=== PATIENT | female | born 1970 | race Caucasian/White ===

== ENCOUNTER → 2019-07-12 | Day surgery (SDC) | payer OTHER ==
--- NOTE | 2019-07-13 17:31 | PATH ---
Cytology Non-Gynecological Report Patient Name: BARB PRASAD Med. Rec. #: [id number] /Age/Gender: 1970 (Age: 48) / F Account: [id number] Location: RADIOLOGY [facility] Taken: 07/12/2019 Received: 07/12/2019 Reported: 07/13/2019 Physicians: Corazon Ortiz M.D. Specimen(s) Received BREAST, LEFT, 9-10:00, FINE NEEDLE ASPIRATION Clinical History Left breast 9-10:00, complicated cyst aspiration Final Diagnosis BREAST, LEFT, 9-10:00, FINE NEEDLE ASPIRATION: SATISFACTORY FOR EVALUATION. NO MALIGNANT CELLS IDENTIFIED. CYSTIC BREAST LESION WITH RARE MACROPHAGES. PROTEINACEOUS DEBRIS AND RARE MACROPHAGES CONSISTENT WITH CYST CONTENTS. NO DUCTAL CELLS IDENTIFIED. Electronically Signed Brigid Shaw M.D. Gross Description Approximately 25 cc of opaque fluid received fixed in 50% alcohol. One cytofunnel prepared and Pap stained. One cellblock prepared.
--- NOTE | 2019-07-14 13:56 | PATH ---
Surgical Pathology Report Patient Name: BARB PRASAD [facility]. Rec. #: [id number] /Age/Gender: 1970 (Age: 48) / F Account: [id number] Location: RAD[facility]OLOGY [facility] Taken: 07/12/2019 Received: 07/12/2019 Reported: 07/14/2019 Physicians: Benjamin Juarez M.D. Specimen(s) Received A: RIGHT AXILLA LYMPH NODE B: RIGHT BREAST 12-:00 CORE BIOPSY C: LEFT BREAST 11:00 CORE BIOPSY Clinical History Palpable mass Mammographic findings, ultrasound findings: Highly suspicious/malignant Final Diagnosis A. RIGHT AXILLA LYMPH NODE, ULTRASOUND GUIDED CORE BIOPSY: METASTATIC CARCINOMA IN A BACKGROUND OF LYMPHOID TISSUE. CARCINOMA MEASURES AT LEAST 1.8MM IN LENGTH ON THIS SLIDE. B. RIGHT BREAST 12- 1:00, 4.3 CM IRREGULAR MASS, CORE BIOPSY: INVASIVE DUCTAL CARCINOMA, MODERATELY DIFFERENTIATED, MEASURING 1.2 CM IN LENGTH MEASURED ON THIS SLIDE. Results of Estrogen Receptor (ER) and Progesterone Receptor (NH) studies performed on block "B1" at [facility] are as follows: ER (clone [id number] mouse monoclonal antibody by [employer]): 100% nuclear staining with strong intensity (Positive). NH (clone16 mouse monoclonal antibody by [employer]): ~90% nuclear staining with strong and moderate intensity (Positive). Results of Her2 (IHC) & Ki-67 studies on block "B1" performed at [place], [place] ([id number]) interpreted at [facility] are as follows: Her2 IHC (EP3 from [employer], formerly known as [id number], using Sorensen Polymer Refine detection kit): Negative (1+) Ki-67: ~20% (intermediate proliferative index) Comment: Immunohistochemical stain E-Cadherin performed and interpreted at [facility] shows diffuse membranous staining in the carcinoma, supports a ductal phenotype. C. LEFT BREAST 11:00, 4.0 CM MASS, CORE BIOPSY: INVASIVE DUCTAL CARCINOMA, WELL DIFFERENTIATED, MEASURING 1.2 CM IN LENGTH MEASURED ON THIS SLIDE. DUCTAL CARCINOMA IN SITU (DCIS) PRESENT, INTERMEDIATE NUCLEAR GRADE, CRIBRIFORM TYPE. Results of Estrogen Receptor (ER) and Progesterone Receptor (NH) studies performed on block "C1" at [facility] are as follows: ER (clone 6F11 mouse monoclonal antibody by Le[employer]): 100% nuclear staining with strong intensity (Positive). NH (clone16 mouse monoclonal antibody by [employer]): ~75% nuclear staining with strong and moderate intensity (Positive). Results of Her2 (IHC) & Ki-67 studies on block "C1" performed at [place], [place] ([id number]) interpreted at [facility] are as follows: Her2 IHC (EP3 from [employer], formerly known as [id number], using Sorensen Polymer Refine detection kit): Equivocal (2+) Ki-67: <3% (low proliferative index) HER2 FISH result is pending. An addendum report to follow. Comment: Immunohistochemical stains performed and interpreted at [facility] show the following results: p63 show loss of the myoepithelial cell layer in the areas of invasive carcinoma. Positive and negative controls (internal if applicable) show appropriate results. Formalin fixation and cold ischemic times are within current ASCO/CAP recommendations for ER, NH and Her2 testing. This case was discussed with Dr. Jacob on 07/14/2019. Electronically Signed Boom Huitron M.D. Addendum Reported: 07/19/2019 Addendum Diagnosis Results of Her2 FISH studies performed on block " C1 " at [place], [place] ([id number] ) are as follows: Her2: 2.0 CEP17: 2.0 Ratio: 1.0 Interpretation: Negative See Emerge report for additional details. Boom Huitron M.D. Gross Description A. Received in formalin labeled "right axilla," is a 0.7 x 0.4 x 0.2 cm aggregate of tijerina-yellow, irregular to cylindrical portions of fibroadipose tissue. The formalin is filtered and the specimen is entirely submitted in one cassette. B. Received in formalin labeled "right 12:00-1:00," are 2 tijerina-yellow, cylindrical portions of fibroadipose tissue measuring 1.5 and 1.8 cm in length and averaging 0.1 cm in diameter. The specimens are submitted in toto in one cassette. C. Received in formalin labeled "left 11:00," are 2 tijerina-yellow, cylindrical portions of fibroadipose tissue averaging 1.4 cm in length and 0.1 cm in diameter. The specimens are submitted in toto in one cassette. Time to formalin fixation: Less than one minute Total formalin fixation time: Approximately 7 hours. 07/12/2019 [facility]07/12/2019
== END | disposition home or self-care (01) ==
LOC: JRADUS-SUR 10:20
PROVIDERS: ATTEND Student in an Organized Health Care Education/Training Program
PROC: 0H9V3ZX Drainage of Bilateral Breast, Percutaneous Approach, Diagnostic (ICD-10-PCS; principal; 2019-07-12)
PROC: 0H9U3ZX Drainage of Left Breast, Percutaneous Approach, Diagnostic (ICD-10-PCS; 2019-07-12)
DX: C50.912 Malignant neoplasm of unspecified site of left female breast (principal); C50.911 Malignant neoplasm of unspecified site of right female breast; C77.3 Secondary and unspecified malignant neoplasm of axilla and upper limb lymph nodes; N60.02 Solitary cyst of left breast; Z17.0 Estrogen receptor positive status [ER+]
CPT/HCPCS: 19083; 19084; 76942-TC; 87899; 88173; 88305-TC; 88342-TC; A4648

== ENCOUNTER 2019-11-12 07:16 | Day surgery (SDC) | payer OTHER ==
[2019-11-12] MEDS ORDERED: GOSERELIN ACETATE 3.6 MG IMPLANT SYRINGE SQ ONE (10:00)
[2019-11-12] MEDS ORDERED: LIDOCAINE HCL 1%, 10 MG/ML (20ML VIAL) ID ONE (10:00)
[2019-11-12 11:09] LABS: BASO % 0.3 % (0-2.0); EOS % 0.7 % (0-4.5); HEMATOCRIT 43.3 % (32.4-45.2); HEMOGLOBIN 14.2 GM/dL (10.7-15.3); LYMPH % 27.9 % (8-40); MCH 29.7 pg (25.7-33.7); MCHC 32.8 g/dl (32.0-36.0); MEAN CELL VOLUME 90.4 fl (80-96); MEAN PLT VOLUME 8.8 fl (7.5-11.1); MONO % 10.7 % (3.8-10.2); NEUT % 60.4 % (42.8-82.8); PLATELET COUNT 261 K/MM3 (134-434); RBC 4.79 M/mm3 (3.60-5.2); RDW 13.9 % (11.6-15.6); WHITE BLOOD COUNT 5.6 K/mm3 (4.0-10.0)
[2019-11-12 11:52] LABS: ALBUMIN 3.6 g/dl (3.4-5.0); BILIRUBIN,TOTAL 0.5 mg/dL (0.2-1); BLOOD UREA NITROGEN 16.7 mg/dL (7-18); CALCIUM 9.9 mg/dL (8.5-10.1); CREATININE 0.4 mg/dL (0.55-1.3); POTASSIUM 3.9 mmol/L (3.5-5.1); TOT PROT 7.1 g/dl (6.4-8.2)
[2019-11-12 15:26] VITALS: BP 140/85; PULSE 75; TEMP 98.6
== END 2019-11-12 11:31 | disposition home or self-care (01) ==
LOC: JONCCHEMO 07:16
PROVIDERS: ATTEND Internal Medicine Hematology & Oncology
DX: Z51.11 Encounter for antineoplastic chemotherapy (principal); C50.912 Malignant neoplasm of unspecified site of left female breast; C50.911 Malignant neoplasm of unspecified site of right female breast
CPT/HCPCS: 36415; 80053; 85025; 96402; J9202

== ENCOUNTER → 2019-11-25 | Day surgery (SDC) | payer OTHER ==
--- NOTE | 2019-11-26 18:10 | PATH ---
Cytology Non-Gynecological Report Patient Name: BARB PRASAD [facility]. Rec. #: [id number] /Age/Gender: 1970 (Age: 48) / F Account: [id number] Location: RADIOLOGY [facility] Taken: 11/25/2019 Received: 11/25/2019 Reported: 11/26/2019 Physicians: Benjamin Valadez M.D. Specimen(s) Received LEFT THYROID FNA Clinical History Left lobe, 4.48 x 2.48 x 3.1 cm Final Diagnosis THYROID, LEFT LOBE, FINE NEEDLE ASPIRATION: SATISFACTORY FOR EVALUATION. BETHESDA CLASS II: BENIGN. CYTOLOGIC FINDINGS ARE CONSISTENT WITH A BENIGN FOLLICULAR NODULE WITH CYSTIC CHANGE. FEW FOLLICULAR CELLS IN A BACKGROUND OF THIN COLLOID AND FEW MACROPHAGES. Electronically Signed Brigid Shaw M.D. Gross Description Received are eight direct smears, four of which are air-dried and Diff-Quik stained, and four of which are alcohol fixed and Pap stained. Also received is 20 ml of bloody formalin from which one cellblock is prepared.
== END | disposition home or self-care (01) ==
LOC: JRADIR 05:08
PROVIDERS: ATTEND Internal Medicine Hematology & Oncology
PROC: 0G9G3ZX Drainage of Left Thyroid Gland Lobe, Percutaneous Approach, Diagnostic (ICD-10-PCS; principal; 2019-11-25)
DX: E04.1 Nontoxic single thyroid nodule (principal)
CPT/HCPCS: 76942; 88173; 88305-TC

== ENCOUNTER 2019-12-10 07:12 | Day surgery (SDC) | payer OTHER ==
[2019-12-10] MEDS ORDERED: LIDOCAINE HCL 1%, 10 MG/ML (20ML VIAL) ID ONE (10:00)
[2019-12-10] MEDS ORDERED: GOSERELIN ACETATE 3.6 MG IMPLANT SYRINGE SQ ONE (10:00)
[2019-12-10 10:17] LABS: EOS % 0.8 % (0-4.5); HEMATOCRIT 43.1 % (32.4-45.2); HEMOGLOBIN 14.1 GM/dL (10.7-15.3); LYMPH % 31.5 % (8-40); MCH 29.8 pg (25.7-33.7); MCHC 32.8 g/dl (32.0-36.0); MEAN CELL VOLUME 90.9 fl (80-96); MEAN PLT VOLUME 8.8 fl (7.5-11.1); MONO % 8.3 % (3.8-10.2); NEUT % 58.4 % (42.8-82.8); PLATELET COUNT 269 K/MM3 (134-434); RBC 4.75 M/mm3 (3.60-5.2); RDW 13.6 % (11.6-15.6); WHITE BLOOD COUNT 4.6 K/mm3 (4.0-10.0)
[2019-12-10 10:39] LABS: ALBUMIN 3.7 g/dl (3.4-5.0); BILIRUBIN,TOTAL 0.4 mg/dL (0.2-1); CREATININE 0.5 mg/dL (0.55-1.3); POTASSIUM 3.7 mmol/L (3.5-5.1)
[2019-12-10 13:55] VITALS: BP 135/79; PULSE 88; TEMP 98.4
[2019-12-11 08:07] LABS: FOLLICLE STIMULATING HORMONE 4.9 mIU/mL (.); LUTEINIZING HORMONE < 0.3 mIU/mL (.)
== END 2019-12-10 11:05 | disposition home or self-care (01) ==
LOC: JONCCHEMO 07:12
PROVIDERS: ATTEND Internal Medicine Hematology & Oncology
DX: Z51.11 Encounter for antineoplastic chemotherapy (principal); C50.911 Malignant neoplasm of unspecified site of right female breast
CPT/HCPCS: 36415; 80053; 82670; 83001; 83002; 85025; 96402; J9202

== ENCOUNTER 2020-01-07 07:29 | Day surgery (SDC) | payer OTHER ==
[2020-01-07] MEDS ORDERED: GOSERELIN ACETATE 3.6 MG IMPLANT SYRINGE SQ ONE (10:00)
[2020-01-07 12:12] LABS: BASO % 0.4 % (0-2.0); EOS % 0.4 % (0-4.5); HEMATOCRIT 45.8 % (32.4-45.2); HEMOGLOBIN 14.9 GM/dL (10.7-15.3); LYMPH % 23.7 % (8-40); MCH 29.5 pg (25.7-33.7); MCHC 32.5 g/dl (32.0-36.0); MEAN CELL VOLUME 90.7 fl (80-96); MEAN PLT VOLUME 8.9 fl (7.5-11.1); MONO % 7.1 % (3.8-10.2); NEUT % 68.4 % (42.8-82.8); PLATELET COUNT 243 K/MM3 (134-434); RBC 5.04 M/mm3 (3.60-5.2); RDW 12.9 % (11.6-15.6); WHITE BLOOD COUNT 6.1 K/mm3 (4.0-10.0)
[2020-01-07 12:44] LABS: ALBUMIN 3.7 g/dl (3.4-5.0); BILIRUBIN,TOTAL 0.5 mg/dL (0.2-1); CALCIUM 10.6 mg/dL (8.5-10.1); CREATININE 0.5 mg/dL (0.55-1.3); POTASSIUM 3.9 mmol/L (3.5-5.1); TOT PROT 7.2 g/dl (6.4-8.2)
[2020-01-07 15:32] VITALS: BP 151/88; PULSE 105; TEMP 98.2
== END 2020-01-07 11:45 | disposition home or self-care (01) ==
LOC: JONCCHEMO 07:29
PROVIDERS: ATTEND Internal Medicine Hematology & Oncology
DX: Z51.11 Encounter for antineoplastic chemotherapy (principal); C50.911 Malignant neoplasm of unspecified site of right female breast
CPT/HCPCS: 36415; 80053; 82670; 85025; 85651; 86038; 86140; 86300; 86431; 96402; J9202

== ENCOUNTER 2020-02-04 06:45 | Day surgery (SDC) | payer OTHER ==
--- OUTSIDE RECORDS SUMMARY | 2020-02-04 06:48 | XMS ---
:1970 Author Organization [facility] Support Name Relationship Address Phone [facility] [place] [address] BARB MOORE DAUGHTER [address] [place] [address] Re-disclosure Warning The records that you are about to access may contain information from federally- assisted alcohol or drug abuse programs. If such information is present, then the following federally mandated warning applies: This information has been disclosed to you from records protected by federal confidentiality rules (42 CFR part 2). The federal rules prohibit you from making any further disclosure of this information unless further disclosure is expressly permitted by the written consent of the person to whom it pertains or as otherwise permitted by 42 CFR part 2. A general authorization for the release of medical or other information is NOT sufficient for this purpose. The Federal rules restrict any use of the information to criminally investigate or prosecute any alcohol or drug abuse patient.The records that you are about to access may contain highly sensitive health information, the redisclosure of which is protected by Article 27-F of the [facility] Public Health law. If you continue you may haveaccess to information: Regarding HIV / AIDS; Provided by facilities licensed or operated by the [facility] Office of Mental Health; or Provided by the [facility] Office for People With Developmental Disabilities. If such information is present, then the following [facility] mandated warning applies: This information has been disclosed to you from confidential records which are protected by state law. State law prohibits you from making any further disclosure of this information without the specific written consent of the person to whom it pertains, or as otherwise permitted by law. Any unauthorized further disclosure in violation of state law may result in a fine or senior care sentence or both. A general authorization for the release of medical or other information is NOT sufficient authorization for further disclosure. Insurance Providers Payer name Policy type Policy ID Covered Covered constitution party's Policy P trevor / Coverage constitution party ID relationship to [place] Inf ormation type [place] [employer] [id number] SP [id number] ESSENTIAL PLAN 1 2 [employer] [id number] SP [id number] ESSENTIAL PLAN 1 2 AFFINITY [id number] SP [id number] AFFINITY [id number] SP [id number] AFFINITY [id number] SP [id number] ESSENTIAL PLAN 1 2 Results ID Date Data Source [id number] 10/17/2019 12:00:00 PM EDT [facility] Name Value Range Interpretation Description Data Sup porting Code Source(s) Document(s ) SARS [facility] CORONAVIRUS 2 RNA This lab was ordered by [facility] and reported by [facility]. ID Date Data Source [id number] 09/10/2019 12:00:00 AM EDT [facility] Name Value Range Interpretation Code Description Data Roxy rce(s) Supporting Document(s ) [facility] RNA XXX GENE+probe- Imp This lab was ordered by MIREYA MALDONADO 2 and reported by [employer] Procedure
[2020-02-04] MEDS ORDERED: GOSERELIN ACETATE 3.6 MG IMPLANT SYRINGE SQ ONE (10:00)
[2020-02-04] MEDS ORDERED: LIDOCAINE HCL 1%, 10 MG/ML (20ML VIAL) ID ONE (10:00)
[2020-02-04 11:33] LABS: BASO % 0.6 % (0-2.0); EOS % 1.1 % (0-4.5); HEMATOCRIT 42.3 % (32.4-45.2); HEMOGLOBIN 14.3 GM/dL (10.7-15.3); MCH 30.6 pg (25.7-33.7); MCHC 33.8 g/dl (32.0-36.0); MEAN CELL VOLUME 90.5 fl (80-96); MEAN PLT VOLUME 8.5 fl (7.5-11.1); MONO % 9.6 % (3.8-10.2); NEUT % 55.7 % (42.8-82.8); PLATELET COUNT 249 K/MM3 (134-434); RBC 4.68 M/mm3 (3.60-5.2); RDW 12.7 % (11.6-15.6); WHITE BLOOD COUNT 4.9 K/mm3 (4.0-10.0)
[2020-02-04 11:53] LABS: ALBUMIN 3.6 g/dl (3.4-5.0); BILIRUBIN,TOTAL 0.5 mg/dL (0.2-1); BLOOD UREA NITROGEN 16.1 mg/dL (7-18); CALCIUM 10.4 mg/dL (8.5-10.1); CREATININE 0.4 mg/dL (0.55-1.3)
[2020-02-04 16:25] VITALS: BP 126/87; PULSE 97; TEMP 98.5
== END 2020-02-04 12:10 | disposition home or self-care (01) ==
LOC: JONCCHEMO 06:45
PROVIDERS: ATTEND Internal Medicine Hematology & Oncology
DX: Z51.11 Encounter for antineoplastic chemotherapy (principal); C50.919 Malignant neoplasm of unspecified site of unspecified female breast
CPT/HCPCS: 36415; 80053; 82670; 85025; 96402; J9202

== ENCOUNTER 2020-04-03 07:12 | Day surgery (SDC) | payer OTHER ==
[2020-04-03] MEDS ORDERED: LIDOCAINE HCL 1%, 10 MG/ML (20ML VIAL) ID ONE (10:00)
[2020-04-03] MEDS ORDERED: GOSERELIN ACETATE 3.6 MG IMPLANT SYRINGE SQ ONE (10:00)
[2020-04-03 10:41] LABS: BASO % 0.7 % (0-2.0); EOS % 0.9 % (0-4.5); HEMATOCRIT 44.3 % (32.4-45.2); HEMOGLOBIN 14.5 GM/dL (10.7-15.3); LYMPH % 29.7 % (8-40); MCH 29.5 pg (25.7-33.7); MCHC 32.7 g/dl (32.0-36.0); MEAN CELL VOLUME 90.2 fl (80-96); MEAN PLT VOLUME 8.7 fl (7.5-11.1); MONO % 9.4 % (3.8-10.2); NEUT % 59.3 % (42.8-82.8); PLATELET COUNT 252 K/MM3 (134-434); RBC 4.92 M/mm3 (3.60-5.2); RDW 12.4 % (11.6-15.6); WHITE BLOOD COUNT 4.3 K/mm3 (4.0-10.0)
[2020-04-03 11:03] LABS: POTASSIUM 3.8 mmol/L (3.5-5.1)
[2020-04-03 11:06] LABS: CALCIUM 10.4 mg/dL (8.5-10.1)
[2020-04-03 11:07] LABS: ALBUMIN 3.9 g/dl (3.4-5.0); BLOOD UREA NITROGEN 14.5 mg/dL (7-18)
[2020-04-03 11:10] LABS: CREATININE 0.4 mg/dL (0.55-1.3)
[2020-04-03 11:12] LABS: BILIRUBIN,TOTAL 0.7 mg/dL (0.2-1); TOT PROT 7.2 g/dl (6.4-8.2)
[2020-04-03 11:56] VITALS: BP 148/80; PULSE 96; TEMP 98.1
== END 2020-04-03 11:35 | disposition home or self-care (01) ==
LOC: JONCCHEMO 07:12
PROVIDERS: ATTEND Internal Medicine Hematology & Oncology
DX: Z51.11 Encounter for antineoplastic chemotherapy (principal); C50.911 Malignant neoplasm of unspecified site of right female breast
CPT/HCPCS: 36415; 80053; 85025; 96402; J9202

== ENCOUNTER 2020-05-04 08:11 | Day surgery (SDC) | payer OTHER ==
[2020-05-04] MEDS ORDERED: GOSERELIN ACETATE 3.6 MG IMPLANT SYRINGE SQ ONE (10:00)
[2020-05-04] MEDS ORDERED: LIDOCAINE HCL 1%, 10 MG/ML (20ML VIAL) ID ONE (10:00)
[2020-05-04 10:48] LABS: BASO % 1.1 % (0-2.0); EOS % 0.7 % (0-4.5); HEMATOCRIT 43.7 % (32.4-45.2); HEMOGLOBIN 14.5 GM/dL (10.7-15.3); LYMPH % 28.7 % (8-40); MCH 30.3 pg (25.7-33.7); MCHC 33.2 g/dl (32.0-36.0); MEAN CELL VOLUME 91.4 fl (80-96); MEAN PLT VOLUME 8.5 fl (7.5-11.1); MONO % 7.5 % (3.8-10.2); PLATELET COUNT 280 K/MM3 (134-434); RBC 4.78 M/mm3 (3.60-5.2); RDW 13.2 % (11.6-15.6); WHITE BLOOD COUNT 5.6 K/mm3 (4.0-10.0)
[2020-05-04 11:10] LABS: ALBUMIN 3.7 g/dl (3.4-5.0); CALCIUM 10.1 mg/dL (8.5-10.1)
[2020-05-04 11:11] LABS: BLOOD UREA NITROGEN 16.1 mg/dL (7-18)
[2020-05-04 11:14] LABS: CREATININE 0.4 mg/dL (0.55-1.3)
[2020-05-04 11:15] LABS: BILIRUBIN,TOTAL 0.8 mg/dL (0.2-1)
[2020-05-04 13:11] VITALS: BP 133/70; PULSE 84; TEMP 98.5
== END 2020-05-04 12:10 | disposition home or self-care (01) ==
LOC: JONCCHEMO 08:11
PROVIDERS: ATTEND Internal Medicine Hematology & Oncology
DX: Z51.11 Encounter for antineoplastic chemotherapy (principal); C50.911 Malignant neoplasm of unspecified site of right female breast
CPT/HCPCS: 36415; 80053; 82670; 85025; 96402; J9202

== ENCOUNTER 2020-06-01 06:51 | Day surgery (SDC) | payer OTHER ==
[2020-06-01] MEDS ORDERED: LIDOCAINE HCL 1%, 10 MG/ML (20ML VIAL) ID ONE (10:00)
[2020-06-01] MEDS ORDERED: GOSERELIN ACETATE 3.6 MG IMPLANT SYRINGE SQ ONE (10:00)
[2020-06-01 10:44] LABS: BASO % 0.9 % (0-2.0); EOS % 0.6 % (0-4.5); HEMATOCRIT 40.8 % (32.4-45.2); HEMOGLOBIN 13.8 GM/dL (10.7-15.3); LYMPH % 32.9 % (8-40); MCH 30.6 pg (25.7-33.7); MCHC 33.8 g/dl (32.0-36.0); MEAN CELL VOLUME 90.6 fl (80-96); MEAN PLT VOLUME 8.8 fl (7.5-11.1); MONO % 7.9 % (3.8-10.2); NEUT % 57.7 % (42.8-82.8); PLATELET COUNT 281 K/MM3 (134-434); RDW 12.5 % (11.6-15.6); WHITE BLOOD COUNT 4.9 K/mm3 (4.0-10.0)
[2020-06-01 11:06] LABS: POTASSIUM 3.6 mmol/L (3.5-5.1)
[2020-06-01 11:07] LABS: BLOOD UREA NITROGEN 16.7 mg/dL (7-18)
[2020-06-01 11:08] LABS: ALBUMIN 3.6 g/dl (3.4-5.0); CALCIUM 10.1 mg/dL (8.5-10.1)
[2020-06-01 11:12] LABS: CREATININE 0.4 mg/dL (0.55-1.3)
[2020-06-01 11:13] LABS: TOT PROT 6.8 g/dl (6.4-8.2)
[2020-06-01 11:16] LABS: BILIRUBIN,TOTAL 0.6 mg/dL (0.2-1)
[2020-06-01 14:43] VITALS: BP 129/72; PULSE 84; TEMP 98.2
== END 2020-06-01 12:15 | disposition home or self-care (01) ==
LOC: JONCCHEMO 06:51
PROVIDERS: ATTEND Internal Medicine Hematology & Oncology
DX: Z51.11 Encounter for antineoplastic chemotherapy (principal); C50.911 Malignant neoplasm of unspecified site of right female breast
CPT/HCPCS: 36415; 80053; 82670; 85025; 96402; J9202

== ENCOUNTER 2020-06-29 07:38 | Day surgery (SDC) | payer OTHER ==
[2020-06-29] MEDS ORDERED: LIDOCAINE HCL 1%, 10 MG/ML (20ML VIAL) ID ONE (10:00)
[2020-06-29] MEDS ORDERED: GOSERELIN ACETATE 3.6 MG IMPLANT SYRINGE SQ ONE (10:00)
[2020-06-29 11:35] LABS: BASO % 0.4 % (0-2.0); EOS % 1.1 % (0-4.5); HEMATOCRIT 41.8 % (32.4-45.2); HEMOGLOBIN 14.2 GM/dL (10.7-15.3); LYMPH % 32.4 % (8-40); MCH 30.7 pg (25.7-33.7); MCHC 34.1 g/dl (32.0-36.0); MEAN CELL VOLUME 90.2 fl (80-96); MEAN PLT VOLUME 9.3 fl (7.5-11.1); MONO % 8.5 % (3.8-10.2); NEUT % 57.6 % (42.8-82.8); PLATELET COUNT 269 K/MM3 (134-434); RBC 4.64 M/mm3 (3.60-5.2); RDW 12.9 % (11.6-15.6); WHITE BLOOD COUNT 5.1 K/mm3 (4.0-10.0)
[2020-06-29 11:45] LABS: POTASSIUM 3.8 mmol/L (3.5-5.1)
[2020-06-29 11:47] LABS: CALCIUM 9.9 mg/dL (8.5-10.1)
[2020-06-29 11:48] LABS: ALBUMIN 3.6 g/dl (3.4-5.0); BLOOD UREA NITROGEN 14.3 mg/dL (7-18)
[2020-06-29 11:51] LABS: CREATININE 0.4 mg/dL (0.55-1.3)
[2020-06-29 11:52] LABS: BILIRUBIN,TOTAL 0.6 mg/dL (0.2-1); TOT PROT 7.1 g/dl (6.4-8.2)
[2020-06-29 16:53] VITALS: BP 155/96; PULSE 101; TEMP 97.8
== END 2020-06-29 11:45 | disposition home or self-care (01) ==
LOC: JONCCHEMO 07:38
PROVIDERS: ATTEND Internal Medicine Hematology & Oncology
DX: Z51.11 Encounter for antineoplastic chemotherapy (principal); C50.911 Malignant neoplasm of unspecified site of right female breast
CPT/HCPCS: 36415; 80053; 83735; 85025; 96402; J9202

== ENCOUNTER 2020-07-27 07:35 | Day surgery (SDC) | payer OTHER ==
[2020-07-27] MEDS ORDERED: GOSERELIN ACETATE 3.6 MG IMPLANT SYRINGE SQ ONE (10:00)
[2020-07-27] MEDS ORDERED: LIDOCAINE HCL 1%, 10 MG/ML (20ML VIAL) ID ONE (10:00)
[2020-07-27 11:10] LABS: BASO % 0.4 % (0-2.0); EOS % 0.6 % (0-4.5); HEMATOCRIT 40.4 % (32.4-45.2); HEMOGLOBIN 13.8 GM/dL (10.7-15.3); LYMPH % 30.5 % (8-40); MCH 30.5 pg (25.7-33.7); MCHC 34.1 g/dl (32.0-36.0); MEAN CELL VOLUME 89.4 fl (80-96); MEAN PLT VOLUME 8.7 fl (7.5-11.1); MONO % 7.1 % (3.8-10.2); NEUT % 61.4 % (42.8-82.8); PLATELET COUNT 263 K/MM3 (134-434); RBC 4.52 M/mm3 (3.60-5.2); RDW 12.5 % (11.6-15.6); WHITE BLOOD COUNT 4.7 K/mm3 (4.0-10.0)
[2020-07-27 11:12] LABS: CALCIUM 10.5 mg/dL (8.5-10.1)
[2020-07-27 11:14] LABS: ALBUMIN 3.6 g/dl (3.4-5.0); BLOOD UREA NITROGEN 13.9 mg/dL (7-18)
[2020-07-27 11:16] LABS: CREATININE 0.4 mg/dL (0.55-1.3); POTASSIUM 3.8 mmol/L (3.5-5.1)
[2020-07-27 11:17] LABS: BILIRUBIN,TOTAL 0.8 mg/dL (0.2-1); TOT PROT 6.7 g/dl (6.4-8.2)
[2020-07-27 14:25] VITALS: BP 118/64; PULSE 71; TEMP 98.2
== END 2020-07-27 12:15 | disposition home or self-care (01) ==
LOC: JONCCHEMO 07:35
PROVIDERS: ATTEND Internal Medicine Hematology & Oncology
DX: Z51.11 Encounter for antineoplastic chemotherapy (principal); C50.912 Malignant neoplasm of unspecified site of left female breast; C50.911 Malignant neoplasm of unspecified site of right female breast
CPT/HCPCS: 36415; 80053; 85025; 96402; J9202

== ENCOUNTER 2020-08-24 07:24 | Day surgery (SDC) | payer OTHER ==
[2020-08-24] MEDS ORDERED: LIDOCAINE HCL 1%, 10 MG/ML (20ML VIAL) ID ONE ×2 (10:00→10:15)
[2020-08-24] MEDS ORDERED: GOSERELIN ACETATE 3.6 MG IMPLANT SYRINGE SQ ONE ×2 (10:00→10:15)
[2020-08-24 11:18] LABS: BASO % 0.5 % (0-2.0); EOS % 0.7 % (0-4.5); HEMATOCRIT 42.1 % (32.4-45.2); HEMOGLOBIN 14.5 GM/dL (10.7-15.3); LYMPH % 34.2 % (8-40); MCH 30.6 pg (25.7-33.7); MCHC 34.4 g/dl (32.0-36.0); MEAN CELL VOLUME 88.9 fl (80-96); MEAN PLT VOLUME 8.7 fl (7.5-11.1); MONO % 7.4 % (3.8-10.2); NEUT % 57.2 % (42.8-82.8); PLATELET COUNT 295 K/MM3 (134-434); RBC 4.74 M/mm3 (3.60-5.2); RDW 12.6 % (11.6-15.6)
[2020-08-24 11:27] LABS: CALCIUM 10.3 mg/dL (8.5-10.1)
[2020-08-24 11:28] LABS: ALBUMIN 3.6 g/dl (3.4-5.0); BLOOD UREA NITROGEN 17.7 mg/dL (7-18)
[2020-08-24 11:31] LABS: CREATININE 0.4 mg/dL (0.55-1.3)
[2020-08-24 11:32] LABS: BILIRUBIN,TOTAL 0.6 mg/dL (0.2-1)
[2020-08-24 17:18] VITALS: BP 129/80; PULSE 77; TEMP 98.3
== END 2020-08-24 12:00 | disposition home or self-care (01) ==
LOC: JONCCHEMO 07:24
PROVIDERS: ATTEND Internal Medicine Hematology & Oncology
DX: Z51.11 Encounter for antineoplastic chemotherapy (principal); C50.912 Malignant neoplasm of unspecified site of left female breast; C50.911 Malignant neoplasm of unspecified site of right female breast
CPT/HCPCS: 36415; 80053; 82670; 85025; 96402; J9202

== ENCOUNTER 2020-09-20 06:42 | Day surgery (SDC) | payer OTHER ==
[2020-09-20 11:00] LABS: BASO % 0.7 % (0-2.0); EOS % 1.2 % (0-4.5); HEMATOCRIT 42.4 % (32.4-45.2); HEMOGLOBIN 14.4 GM/dL (10.7-15.3); LYMPH % 29.6 % (8-40); MCH 30.5 pg (25.7-33.7); MEAN CELL VOLUME 89.7 fl (80-96); MEAN PLT VOLUME 8.6 fl (7.5-11.1); MONO % 7.3 % (3.8-10.2); NEUT % 61.2 % (42.8-82.8); PLATELET COUNT 250 K/MM3 (134-434); RBC 4.72 M/mm3 (3.60-5.2); RDW 12.6 % (11.6-15.6); WHITE BLOOD COUNT 5.5 K/mm3 (4.0-10.0)
[2020-09-20] MEDS ORDERED: LIDOCAINE HCL 1%, 10 MG/ML (20ML VIAL) ID ONE (11:00)
[2020-09-20] MEDS ORDERED: GOSERELIN ACETATE 3.6 MG IMPLANT SYRINGE SQ ONE (11:00)
[2020-09-20 11:27] LABS: ALBUMIN 3.6 g/dl (3.4-5.0); BLOOD UREA NITROGEN 15.2 mg/dL (7-18); CALCIUM 9.7 mg/dL (8.5-10.1)
[2020-09-20 11:32] LABS: BILIRUBIN,TOTAL 0.5 mg/dL (0.2-1); TOT PROT 6.7 g/dl (6.4-8.2)
[2020-09-20 11:39] LABS: CREATININE 0.3 mg/dL (0.55-1.3)
[2020-09-20 18:21] VITALS: BP 134/80; PULSE 83; TEMP 98.3
== END 2020-09-20 11:30 | disposition home or self-care (01) ==
LOC: JONCCHEMO 06:42
PROVIDERS: ATTEND Internal Medicine Hematology & Oncology
DX: Z51.11 Encounter for antineoplastic chemotherapy (principal); C50.911 Malignant neoplasm of unspecified site of right female breast; C50.912 Malignant neoplasm of unspecified site of left female breast
CPT/HCPCS: 36415; 80053; 82670; 85025; 86300; 96402; J9202

== ENCOUNTER 2020-10-18 07:58 | Day surgery (SDC) | payer OTHER ==
[2020-10-18] MEDS ORDERED: LIDOCAINE HCL 1%, 10 MG/ML (20ML VIAL) ID ONE (10:00)
[2020-10-18] MEDS ORDERED: GOSERELIN ACETATE 3.6 MG IMPLANT SYRINGE SQ ONE (10:00)
[2020-10-18 10:08] LABS: BASO % 0.5 % (0-2.0); EOS % 1.4 % (0-4.5); HEMOGLOBIN 14.4 GM/dL (10.7-15.3); LYMPH % 34.5 % (8-40); MCH 29.6 pg (25.7-33.7); MCHC 32.8 g/dl (32.0-36.0); MEAN CELL VOLUME 90.1 fl (80-96); MEAN PLT VOLUME 7.8 fl (7.5-11.1); MONO % 6.2 % (3.8-10.2); NEUT % 57.4 % (42.8-82.8); PLATELET COUNT 259 10^3/uL (134-434); RBC 4.89 M/mm3 (3.60-5.2); RDW 13.3 % (11.6-15.6); WHITE BLOOD COUNT 5.3 K/mm3 (4.0-10.0)
[2020-10-18 10:28] LABS: CALCIUM 9.7 mg/dL (8.5-10.1)
[2020-10-18 10:29] LABS: ALBUMIN 3.7 g/dl (3.4-5.0); BLOOD UREA NITROGEN 15.9 mg/dL (7-18)
[2020-10-18 10:32] LABS: CREATININE 0.3 mg/dL (0.55-1.3)
[2020-10-18 10:33] LABS: BILIRUBIN,TOTAL 0.6 mg/dL (0.2-1)
[2020-10-18 16:29] VITALS: BP 139/88; PULSE 77; TEMP 98.5
== END 2020-10-18 11:10 | disposition home or self-care (01) ==
LOC: JONCCHEMO 07:58
PROVIDERS: ATTEND Internal Medicine Hematology & Oncology
DX: Z51.11 Encounter for antineoplastic chemotherapy (principal); C50.911 Malignant neoplasm of unspecified site of right female breast; C50.912 Malignant neoplasm of unspecified site of left female breast
CPT/HCPCS: 36415; 80053; 85025; 96402; J9202

== ENCOUNTER 2020-11-15 05:12 | Day surgery (SDC) | payer OTHER ==
[2020-11-15] MEDS ORDERED: GOSERELIN ACETATE 3.6 MG IMPLANT SYRINGE SQ ONE (10:00)
[2020-11-15] MEDS ORDERED: LIDOCAINE HCL 1%, 10 MG/ML (20ML VIAL) ID ONE (10:00)
[2020-11-15 10:26] LABS: BASO % 0.7 % (0-2.0); EOS % 0.9 % (0-4.5); HEMATOCRIT 44.7 % (32.4-45.2); HEMOGLOBIN 14.9 GM/dL (10.7-15.3); LYMPH % 31.9 % (8-40); MCH 30.4 pg (25.7-33.7); MCHC 33.4 g/dl (32.0-36.0); MEAN CELL VOLUME 91.1 fl (80-96); MEAN PLT VOLUME 8.2 fl (7.5-11.1); MONO % 4.7 % (3.8-10.2); NEUT % 61.8 % (42.8-82.8); PLATELET COUNT 261 10^3/uL (134-434); RBC 4.91 M/mm3 (3.60-5.2); RDW 13.7 % (11.6-15.6); WHITE BLOOD COUNT 5.2 K/mm3 (4.0-10.0)
[2020-11-15 10:47] LABS: BLOOD UREA NITROGEN 14.4 mg/dL (7-18)
[2020-11-15 10:48] LABS: ALBUMIN 3.8 g/dl (3.4-5.0)
[2020-11-15 10:51] LABS: CREATININE 0.5 mg/dL (0.55-1.3)
[2020-11-15 10:52] LABS: BILIRUBIN,TOTAL 0.5 mg/dL (0.2-1); TOT PROT 7.1 g/dl (6.4-8.2)
[2020-11-15 14:09] VITALS: BP 138/92; PULSE 76; TEMP 98.3
== END 2020-11-15 11:40 | disposition home or self-care (01) ==
LOC: JONCCHEMO 05:12
PROVIDERS: ATTEND Internal Medicine Hematology & Oncology
DX: Z51.11 Encounter for antineoplastic chemotherapy (principal); C50.911 Malignant neoplasm of unspecified site of right female breast; C50.912 Malignant neoplasm of unspecified site of left female breast
CPT/HCPCS: 36415; 80053; 85025; 96402; J9202

== ENCOUNTER 2020-12-13 06:59 | Day surgery (SDC) | payer OTHER ==
[2020-12-13] MEDS ORDERED: GOSERELIN ACETATE 3.6 MG IMPLANT SYRINGE SQ ONE (10:00)
[2020-12-13] MEDS ORDERED: LIDOCAINE HCL 1%, 10 MG/ML (20ML VIAL) ID ONE (10:00)
[2020-12-13 10:47] LABS: BASO % 0.5 % (0-2.0); EOS % 1.1 % (0-4.5); HEMATOCRIT 43.5 % (32.4-45.2); HEMOGLOBIN 14.7 GM/dL (10.7-15.3); LYMPH % 31.8 % (8-40); MCH 31.2 pg (25.7-33.7); MCHC 33.8 g/dl (32.0-36.0); MEAN CELL VOLUME 92.3 fl (80-96); MEAN PLT VOLUME 8.3 fl (7.5-11.1); MONO % 5.9 % (3.8-10.2); NEUT % 60.7 % (42.8-82.8); PLATELET COUNT 265 10^3/uL (134-434); RBC 4.71 M/mm3 (3.60-5.2); RDW 13.9 % (11.6-15.6); WHITE BLOOD COUNT 5.6 K/mm3 (4.0-10.0)
[2020-12-13 11:06] LABS: ALBUMIN 3.9 g/dl (3.4-5.0); BLOOD UREA NITROGEN 19.9 mg/dL (7-18); CALCIUM 10.4 mg/dL (8.5-10.1)
[2020-12-13 11:09] LABS: CREATININE 0.6 mg/dL (0.55-1.3)
[2020-12-13 11:11] LABS: BILIRUBIN,TOTAL 0.7 mg/dL (0.2-1); TOT PROT 7.4 g/dl (6.4-8.2)
[2020-12-13 17:42] VITALS: BP 140/80; PULSE 85
[2020-12-13 18:01] VITALS: TEMP 98
== END 2020-12-13 12:15 | disposition home or self-care (01) ==
LOC: JONCNONCHE 06:59
PROVIDERS: ATTEND Internal Medicine Hematology & Oncology
DX: Z51.11 Encounter for antineoplastic chemotherapy (principal); Z85.3 Personal history of malignant neoplasm of breast
CPT/HCPCS: 36415; 80053; 82670; 85025; 96402; J9202

== ENCOUNTER 2021-01-10 07:33 | Day surgery (SDC) | payer OTHER ==
[2021-01-10] MEDS ORDERED: LIDOCAINE HCL 1%, 10 MG/ML (20ML VIAL) ID ONE (10:00)
[2021-01-10] MEDS ORDERED: GOSERELIN ACETATE 3.6 MG IMPLANT SYRINGE SQ ONE (10:00)
[2021-01-10 11:31] LABS: BASO % 0.5 % (0-2.0); EOS % 0.5 % (0-4.5); HEMATOCRIT 42.6 % (32.4-45.2); HEMOGLOBIN 14.6 GM/dL (10.7-15.3); LYMPH % 31.5 % (8-40); MCH 31.8 pg (25.7-33.7); MCHC 34.3 g/dl (32.0-36.0); MEAN CELL VOLUME 92.7 fl (80-96); MEAN PLT VOLUME 8.4 fl (7.5-11.1); MONO % 7.5 % (3.8-10.2); PLATELET COUNT 274 10^3/uL (134-434); RDW 13.8 % (11.6-15.6); WHITE BLOOD COUNT 5.2 K/mm3 (4.0-10.0)
[2021-01-10 11:39] LABS: INR 1.01 (0.83-1.09); PROTHROMBIN TIME (PATIENT) 12.4 SEC (9.7-13.0)
[2021-01-10 11:41] LABS: ACTIVATED PTT 28.6 SECONDS (25.2-36.5)
[2021-01-10 12:00] LABS: CALCIUM 9.8 mg/dL (8.5-10.1)
[2021-01-10 12:01] LABS: BLOOD UREA NITROGEN 17.6 mg/dL (7-18)
[2021-01-10 12:04] LABS: CREATININE 0.5 mg/dL (0.55-1.3)
[2021-01-10 12:06] LABS: BILIRUBIN,TOTAL 0.6 mg/dL (0.2-1); TOT PROT 7.5 g/dl (6.4-8.2)
[2021-01-10 17:22] VITALS: BP 133/84; PULSE 84; TEMP 98.2
== END 2021-01-10 12:45 | disposition home or self-care (01) ==
LOC: JONCCHEMO 07:33
PROVIDERS: ATTEND Internal Medicine Hematology & Oncology
DX: Z51.11 Encounter for antineoplastic chemotherapy (principal); Z85.3 Personal history of malignant neoplasm of breast
CPT/HCPCS: 36415; 71046-TC-FY; 80053; 82670; 83655; 84439; 84443; 85025; 85610; 85730; 96402; J9202

== ENCOUNTER 2021-02-07 07:38 | Day surgery (SDC) | payer OTHER ==
[2021-02-07] MEDS ORDERED: LIDOCAINE HCL 1%, 10 MG/ML (20ML VIAL) ID ONE (11:15)
[2021-02-07] MEDS ORDERED: GOSERELIN ACETATE 3.6 MG IMPLANT SYRINGE SQ ONE (11:15)
[2021-02-07 13:09] LABS: BASO % 0.6 % (0-2.0); EOS % 2.5 % (0-4.5); HEMATOCRIT 40.7 % (32.4-45.2); HEMOGLOBIN 13.6 GM/dL (10.7-15.3); LYMPH % 23.4 % (8-40); MCH 31.1 pg (25.7-33.7); MCHC 33.5 g/dl (32.0-36.0); MEAN CELL VOLUME 92.9 fl (80-96); MEAN PLT VOLUME 8.4 fl (7.5-11.1); NEUT % 65.5 % (42.8-82.8); PLATELET COUNT 380 10^3/uL (134-434); RBC 4.39 M/mm3 (3.60-5.2); WHITE BLOOD COUNT 6.4 K/mm3 (4.0-10.0)
[2021-02-07 13:21] LABS: CALCIUM 10.2 mg/dL (8.5-10.1)
[2021-02-07 13:22] LABS: ALBUMIN 3.6 g/dl (3.4-5.0); BLOOD UREA NITROGEN 17.2 mg/dL (7-18)
[2021-02-07 13:25] LABS: CREATININE 0.4 mg/dL (0.55-1.3)
[2021-02-07 13:27] LABS: BILIRUBIN,TOTAL 0.4 mg/dL (0.2-1); TOT PROT 7.5 g/dl (6.4-8.2)
[2021-02-07 14:48] VITALS: TEMP 97.9
[2021-02-07 14:51] VITALS: BP 118/68; PULSE 88
== END 2021-02-07 12:15 | disposition home or self-care (01) ==
LOC: JONCCHEMO 07:38
PROVIDERS: ATTEND Internal Medicine Hematology & Oncology
DX: Z51.11 Encounter for antineoplastic chemotherapy (principal); C50.911 Malignant neoplasm of unspecified site of right female breast; C50.912 Malignant neoplasm of unspecified site of left female breast
CPT/HCPCS: 36415; 80053; 85025; 96402; J9202

== ENCOUNTER 2021-03-07 08:18 | Day surgery (SDC) | payer OTHER ==
[2021-03-07] MEDS ORDERED: GOSERELIN ACETATE 3.6 MG IMPLANT SYRINGE SQ ONE (10:00)
[2021-03-07] MEDS ORDERED: LIDOCAINE HCL 1%, 10 MG/ML (20ML VIAL) ID ONE (10:00)
[2021-03-07 11:15] LABS: BASO % 1.1 % (0-2.0); EOS % 1.3 % (0-4.5); HEMATOCRIT 42.8 % (32.4-45.2); HEMOGLOBIN 14.7 GM/dL (10.7-15.3); MCH 31.6 pg (25.7-33.7); MCHC 34.5 g/dl (32.0-36.0); MEAN CELL VOLUME 91.6 fl (80-96); MEAN PLT VOLUME 8.4 fl (7.5-11.1); MONO % 7.6 % (3.8-10.2); PLATELET COUNT 277 10^3/uL (134-434); RBC 4.67 M/mm3 (3.60-5.2); RDW 12.8 % (11.6-15.6)
[2021-03-07 11:35] LABS: CALCIUM 10.7 mg/dL (8.5-10.1)
[2021-03-07 11:36] LABS: ALBUMIN 3.7 g/dl (3.4-5.0)
[2021-03-07 11:39] LABS: CREATININE 0.6 mg/dL (0.55-1.3)
[2021-03-07 11:40] LABS: BILIRUBIN,TOTAL 0.5 mg/dL (0.2-1); TOT PROT 7.5 g/dl (6.4-8.2)
[2021-03-07 17:01] VITALS: BP 141/93; PULSE 76; TEMP 98.6
== END 2021-03-07 11:20 | disposition home or self-care (01) ==
LOC: JONCCHEMO 08:18
PROVIDERS: ATTEND Internal Medicine Hematology & Oncology
DX: Z51.11 Encounter for antineoplastic chemotherapy (principal); C50.911 Malignant neoplasm of unspecified site of right female breast; C50.912 Malignant neoplasm of unspecified site of left female breast
CPT/HCPCS: 36415; 80053; 85025; 96402; J9202

== ENCOUNTER → 2021-04-04 | Day surgery (SDC) | payer OTHER ==
[~2021-04-04] MED LIST: GOSERELIN ACETATE 3.6 MG IMPLANT SYRINGE SQ ONE; LIDOCAINE HCL 1%, 10 MG/ML (20ML VIAL) ID ONE
[2021-04-04 10:55] LABS: BASO % 0.6 % (0-2.0); HEMOGLOBIN 15.1 GM/dL (10.7-15.3); LYMPH % 19.6 % (8-40); MCH 31.6 pg (25.7-33.7); MCHC 33.6 g/dl (32.0-36.0); MEAN CELL VOLUME 94.1 fl (80-96); MEAN PLT VOLUME 8.5 fl (7.5-11.1); MONO % 7.4 % (3.8-10.2); NEUT % 71.4 % (42.8-82.8); PLATELET COUNT 258 10^3/uL (134-434); RBC 4.78 M/mm3 (3.60-5.2); RDW 12.8 % (11.6-15.6); WHITE BLOOD COUNT 5.4 K/mm3 (4.0-10.0)
[2021-04-04 11:19] LABS: CALCIUM 9.9 mg/dL (8.5-10.1)
[2021-04-04 11:20] LABS: ALBUMIN 3.9 g/dl (3.4-5.0); BLOOD UREA NITROGEN 14.5 mg/dL (7-18)
[2021-04-04 11:23] LABS: CREATININE 0.5 mg/dL (0.55-1.3)
[2021-04-04 11:25] LABS: BILIRUBIN,TOTAL 0.4 mg/dL (0.2-1); TOT PROT 7.3 g/dl (6.4-8.2)
== END | disposition home or self-care (01) ==
LOC: JONCCHEMO 07:32
PROVIDERS: ATTEND Internal Medicine Hematology & Oncology
DX: Z53.9 Procedure and treatment not carried out, unspecified reason (principal)
CPT/HCPCS: 36415; 80053; 82306; 85025

== ENCOUNTER 2021-04-11 06:51 | Day surgery (SDC) | payer OTHER ==
[2021-04-11] MEDS ORDERED: GOSERELIN ACETATE 3.6 MG IMPLANT SYRINGE SQ ONE (10:00)
[2021-04-11] MEDS ORDERED: LIDOCAINE HCL 1%, 10 MG/ML (20ML VIAL) ID ONE (10:00)
[2021-04-11 10:12] LABS: BASO % 0.7 % (0-2.0); EOS % 0.9 % (0-4.5); HEMATOCRIT 44.7 % (32.4-45.2); HEMOGLOBIN 15.1 GM/dL (10.7-15.3); LYMPH % 17.9 % (8-40); MCH 31.4 pg (25.7-33.7); MCHC 33.7 g/dl (32.0-36.0); MEAN CELL VOLUME 93.3 fl (80-96); MEAN PLT VOLUME 8.8 fl (7.5-11.1); MONO % 9.7 % (3.8-10.2); NEUT % 70.8 % (42.8-82.8); PLATELET COUNT 248 10^3/uL (134-434); RBC 4.79 M/mm3 (3.60-5.2); RDW 12.7 % (11.6-15.6); WHITE BLOOD COUNT 4.7 K/mm3 (4.0-10.0)
[2021-04-11 10:31] LABS: ALBUMIN 3.6 g/dl (3.4-5.0); BLOOD UREA NITROGEN 15.1 mg/dL (7-18); CALCIUM 9.9 mg/dL (8.5-10.1); MAGNESIUM 2.2 mg/dL (1.8-2.4)
[2021-04-11 10:34] LABS: CREATININE 0.5 mg/dL (0.55-1.3)
[2021-04-11 10:36] LABS: TOT PROT 7.5 g/dl (6.4-8.2)
[2021-04-11 10:47] LABS: BILIRUBIN,TOTAL 0.4 mg/dL (0.2-1)
[2021-04-11 15:29] VITALS: TEMP 98.2
[2021-04-11 18:28] VITALS: BP 134/90; PULSE 104
== END 2021-04-11 10:00 | disposition home or self-care (01) ==
LOC: JONCCHEMO 06:51
PROVIDERS: ATTEND Internal Medicine Hematology & Oncology
DX: Z51.11 Encounter for antineoplastic chemotherapy (principal); C50.911 Malignant neoplasm of unspecified site of right female breast; C50.912 Malignant neoplasm of unspecified site of left female breast
CPT/HCPCS: 36415; 80053; 83735; 85025; 96402; J9202

== ENCOUNTER 2021-05-09 06:56 | Day surgery (SDC) | payer OTHER ==
[2021-05-09] MEDS ORDERED: GOSERELIN ACETATE 3.6 MG IMPLANT SYRINGE SQ ONE (11:00)
[2021-05-09] MEDS ORDERED: LIDOCAINE HCL 1%, 10 MG/ML (20ML VIAL) ID ONE (11:00)
[2021-05-09 11:07] LABS: BASO % 0.6 % (0-2.0); EOS % 1.2 % (0-4.5); HEMATOCRIT 43.9 % (32.4-45.2); HEMOGLOBIN 14.5 GM/dL (10.7-15.3); LYMPH % 15.9 % (8-40); MCH 30.4 pg (25.7-33.7); MCHC 33.1 g/dl (32.0-36.0); MEAN CELL VOLUME 91.9 fl (80-96); MONO % 10.1 % (3.8-10.2); NEUT % 72.2 % (42.8-82.8); PLATELET COUNT 273 10^3/uL (134-434); RBC 4.78 M/mm3 (3.60-5.2); RDW 13.2 % (11.6-15.6); WHITE BLOOD COUNT 5.3 K/mm3 (4.0-10.0)
[2021-05-09 11:36] LABS: BLOOD UREA NITROGEN 14.7 mg/dL (7-18); CALCIUM 11.2 mg/dL (8.5-10.1)
[2021-05-09 11:37] LABS: ALBUMIN 3.8 g/dl (3.4-5.0)
[2021-05-09 11:40] LABS: CREATININE 0.5 mg/dL (0.55-1.3)
[2021-05-09 11:41] LABS: BILIRUBIN,TOTAL 0.8 mg/dL (0.2-1); TOT PROT 7.6 g/dl (6.4-8.2)
[2021-05-09 16:21] VITALS: BP 119/87; PULSE 93; TEMP 98.1
== END 2021-05-09 12:15 | disposition home or self-care (01) ==
LOC: JONCCHEMO 06:56
PROVIDERS: ATTEND Internal Medicine Hematology & Oncology
DX: Z51.11 Encounter for antineoplastic chemotherapy (principal); C50.811 Malignant neoplasm of overlapping sites of right female breast; C50.212 Malignant neoplasm of upper-inner quadrant of left female breast; Z17.0 Estrogen receptor positive status [ER+]
CPT/HCPCS: 36415; 80053; 85025; 86300; 96402; J9202

== ENCOUNTER 2021-06-06 07:29 | Day surgery (SDC) | payer OTHER ==
[2021-06-06] MEDS ORDERED: LIDOCAINE HCL 1%, 10 MG/ML (20ML VIAL) ID ONE (10:00)
[2021-06-06] MEDS ORDERED: GOSERELIN ACETATE 3.6 MG IMPLANT SYRINGE SQ ONE (10:00)
[2021-06-06 11:06] LABS: BASO % 0.7 % (0-2.0); EOS % 1.3 % (0-4.5); HEMATOCRIT 43.8 % (32.4-45.2); HEMOGLOBIN 14.3 GM/dL (10.7-15.3); LYMPH % 22.7 % (8-40); MCH 30.5 pg (25.7-33.7); MCHC 32.7 g/dl (32.0-36.0); MEAN CELL VOLUME 93.1 fl (80-96); MONO % 8.5 % (3.8-10.2); NEUT % 66.8 % (42.8-82.8); PLATELET COUNT 260 10^3/uL (134-434); RBC 4.71 M/mm3 (3.60-5.2); RDW 13.5 % (11.6-15.6); WHITE BLOOD COUNT 3.9 K/mm3 (4.0-10.0)
[2021-06-06 12:15] LABS: ALBUMIN 3.6 g/dl (3.4-5.0); BLOOD UREA NITROGEN 16.8 mg/dL (7-18); CALCIUM 10.1 mg/dL (8.5-10.1)
[2021-06-06 12:18] LABS: CREATININE 0.5 mg/dL (0.55-1.3)
[2021-06-06 12:20] LABS: BILIRUBIN,TOTAL 0.5 mg/dL (0.2-1)
[2021-06-06 15:03] VITALS: BP 132/91; PULSE 81; TEMP 98.2
== END 2021-06-06 12:45 | disposition home or self-care (01) ==
LOC: JONCCHEMO 07:29
PROVIDERS: ATTEND Internal Medicine Hematology & Oncology
DX: Z51.11 Encounter for antineoplastic chemotherapy (principal); C50.812 Malignant neoplasm of overlapping sites of left female breast; C50.811 Malignant neoplasm of overlapping sites of right female breast; Z17.0 Estrogen receptor positive status [ER+]
CPT/HCPCS: 36415; 80053; 85025; 96402; J9202

== ENCOUNTER 2021-07-05 07:03 | Day surgery (SDC) | payer OTHER ==
[2021-07-05] MEDS ORDERED: GOSERELIN ACETATE 3.6 MG IMPLANT SYRINGE SQ ONE (10:00)
[2021-07-05] MEDS ORDERED: LIDOCAINE HCL 1%, 10 MG/ML (20ML VIAL) ID ONE (10:00)
[2021-07-05 10:50] LABS: BASO % 0.4 % (0-2.0); EOS % 1.3 % (0-4.5); HEMATOCRIT 38.9 % (32.4-45.2); HEMOGLOBIN 12.9 GM/dL (10.7-15.3); LYMPH % 20.9 % (8-40); MCH 30.7 pg (25.7-33.7); MCHC 33.3 g/dl (32.0-36.0); MEAN CELL VOLUME 92.4 fl (80-96); MEAN PLT VOLUME 7.3 fl (7.5-11.1); MONO % 7.3 % (3.8-10.2); NEUT % 70.1 % (42.8-82.8); PLATELET COUNT 523 10^3/uL (134-434); RBC 4.21 M/mm3 (3.60-5.2); RDW 12.8 % (11.6-15.6); WHITE BLOOD COUNT 5.7 K/mm3 (4.0-10.0)
[2021-07-05 11:07] LABS: ALBUMIN 3.3 g/dl (3.4-5.0); BLOOD UREA NITROGEN 14.8 mg/dL (7-18); CALCIUM 10.1 mg/dL (8.5-10.1)
[2021-07-05 11:10] LABS: CREATININE 0.5 mg/dL (0.55-1.3)
[2021-07-05 11:12] LABS: BILIRUBIN,TOTAL 0.2 mg/dL (0.2-1); TOT PROT 7.6 g/dl (6.4-8.2)
[2021-07-05 11:55] VITALS: BP 146/81; PULSE 111; TEMP 98.1
== END 2021-07-05 11:40 | disposition home or self-care (01) ==
LOC: JONCCHEMO 07:03
PROVIDERS: ATTEND Internal Medicine Hematology & Oncology
DX: Z51.11 Encounter for antineoplastic chemotherapy (principal); C50.919 Malignant neoplasm of unspecified site of unspecified female breast
CPT/HCPCS: 36415; 80053; 85025; 96402; J9202

== ENCOUNTER 2021-08-03 07:13 | Day surgery (SDC) | payer OTHER ==
[2021-08-03] MEDS ORDERED: LIDOCAINE HCL 1%, 10 MG/ML (20ML VIAL) ID ONE (10:00)
[2021-08-03] MEDS ORDERED: GOSERELIN ACETATE 3.6 MG IMPLANT SYRINGE SQ ONE (10:00)
[2021-08-03 10:41] LABS: BASO % 0.2 % (0-2.0); EOS % 0.9 % (0-4.5); LYMPH % 20.8 % (8-40); MCH 30.7 pg (25.7-33.7); MCHC 33.3 g/dl (32.0-36.0); MEAN CELL VOLUME 92.2 fl (80-96); MEAN PLT VOLUME 7.5 fl (7.5-11.1); MONO % 7.7 % (3.8-10.2); NEUT % 70.4 % (42.8-82.8); PLATELET COUNT 302 10^3/uL (134-434); RBC 4.55 M/mm3 (3.60-5.2); WHITE BLOOD COUNT 5.6 K/mm3 (4.0-10.0)
[2021-08-03 11:05] LABS: CALCIUM 10.1 mg/dL (8.5-10.1)
[2021-08-03 11:06] LABS: ALBUMIN 3.4 g/dl (3.4-5.0); BLOOD UREA NITROGEN 15.5 mg/dL (7-18)
[2021-08-03 11:09] LABS: CREATININE 0.6 mg/dL (0.55-1.3)
[2021-08-03 11:11] LABS: BILIRUBIN,TOTAL 0.6 mg/dL (0.2-1); TOT PROT 7.5 g/dl (6.4-8.2)
[2021-08-03 17:17] VITALS: BP 147/99; PULSE 105; TEMP 98.6
== END 2021-08-03 11:30 | disposition home or self-care (01) ==
LOC: JONCCHEMO 07:13
PROVIDERS: ATTEND Internal Medicine Hematology & Oncology
DX: Z51.11 Encounter for antineoplastic chemotherapy (principal); C50.919 Malignant neoplasm of unspecified site of unspecified female breast
CPT/HCPCS: 36415; 80053; 85025; 96402; J9202

== ENCOUNTER 2021-08-31 08:14 | Day surgery (SDC) | payer OTHER ==
[2021-08-31] MEDS ORDERED: GOSERELIN ACETATE 3.6 MG IMPLANT SYRINGE SQ ONE (10:00)
[2021-08-31] MEDS ORDERED: LIDOCAINE HCL 1%, 10 MG/ML (20ML VIAL) ID ONE (10:00)
[2021-08-31 11:24] LABS: BASO % 0.4 % (0-2.0); EOS % 1.1 % (0-4.5); HEMATOCRIT 37.6 % (32.4-45.2); HEMOGLOBIN 12.5 GM/dL (10.7-15.3); LYMPH % 18.9 % (8-40); MCH 30.1 pg (25.7-33.7); MCHC 33.3 g/dl (32.0-36.0); MEAN CELL VOLUME 90.6 fl (80-96); MEAN PLT VOLUME 7.4 fl (7.5-11.1); MONO % 7.9 % (3.8-10.2); NEUT % 71.7 % (42.8-82.8); PLATELET COUNT 466 10^3/uL (134-434); RBC 4.15 M/mm3 (3.60-5.2); RDW 12.6 % (11.6-15.6); WHITE BLOOD COUNT 6.4 K/mm3 (4.0-10.0)
[2021-08-31 11:45] LABS: CALCIUM 9.9 mg/dL (8.5-10.1)
[2021-08-31 11:47] LABS: ALBUMIN 3.2 g/dl (3.4-5.0); BLOOD UREA NITROGEN 13.2 mg/dL (7-18)
[2021-08-31 11:48] LABS: CREATININE 0.4 mg/dL (0.55-1.3)
[2021-08-31 11:50] LABS: BILIRUBIN,TOTAL 0.5 mg/dL (0.2-1); TOT PROT 7.4 g/dl (6.4-8.2)
[2021-08-31 18:05] VITALS: BP 121/66; PULSE 94; TEMP 98.9
== END 2021-08-31 12:45 | disposition home or self-care (01) ==
LOC: JONCCHEMO 08:14
PROVIDERS: ATTEND Internal Medicine Hematology & Oncology
DX: Z51.11 Encounter for antineoplastic chemotherapy (principal); C50.912 Malignant neoplasm of unspecified site of left female breast; C50.911 Malignant neoplasm of unspecified site of right female breast
CPT/HCPCS: 36415; 80053; 85025; 86300; 96402; J9202

== ENCOUNTER 2021-09-28 07:01 | Day surgery (SDC) | payer OTHER ==
[2021-09-28] MEDS ORDERED: GOSERELIN ACETATE 3.6 MG IMPLANT SYRINGE SQ ONE (10:00)
[2021-09-28] MEDS ORDERED: LIDOCAINE HCL 1%, 10 MG/ML (20ML VIAL) ID ONE (10:00)
[2021-09-28 14:06] LABS: BASO % 0.6 % (0-2.0); EOS % 1.3 % (0-4.5); HEMATOCRIT 38.7 % (32.4-45.2); HEMOGLOBIN 12.7 GM/dL (10.7-15.3); LYMPH % 18.2 % (8-40); MCH 29.1 pg (25.7-33.7); MCHC 32.8 g/dl (32.0-36.0); MEAN CELL VOLUME 88.6 fl (80-96); MEAN PLT VOLUME 7.7 fl (7.5-11.1); NEUT % 74.9 % (42.8-82.8); PLATELET COUNT 363 10^3/uL (134-434); RBC 4.37 M/mm3 (3.60-5.2); RDW 13.5 % (11.6-15.6); WHITE BLOOD COUNT 6.7 K/mm3 (4.0-10.0)
[2021-09-28 14:42] LABS: ALBUMIN 3.4 g/dl (3.4-5.0); CALCIUM 10.1 mg/dL (8.5-10.1)
[2021-09-28 14:43] LABS: BLOOD UREA NITROGEN 14.5 mg/dL (7-18)
[2021-09-28 14:46] LABS: CREATININE 0.5 mg/dL (0.55-1.3)
[2021-09-28 14:47] LABS: BILIRUBIN,TOTAL 0.4 mg/dL (0.2-1); TOT PROT 7.5 g/dl (6.4-8.2)
[2021-09-28 14:52] VITALS: BP 130/89; PULSE 116; TEMP 98.4
== END 2021-09-28 15:00 | disposition home or self-care (01) ==
LOC: JONCCHEMO 07:01
PROVIDERS: ATTEND Internal Medicine Hematology & Oncology
DX: Z51.11 Encounter for antineoplastic chemotherapy (principal); Z85.3 Personal history of malignant neoplasm of breast
CPT/HCPCS: 36415; 80053; 82306; 84439; 84443; 85025; 96402; J9202

== ENCOUNTER 2021-10-26 06:29 | Day surgery (SDC) | payer OTHER ==
[2021-10-26] MEDS ORDERED: GOSERELIN ACETATE 3.6 MG IMPLANT SYRINGE SQ ONE (10:00)
[2021-10-26] MEDS ORDERED: LIDOCAINE HCL 1%, 10 MG/ML (20ML VIAL) ID ONE (10:00)
[2021-10-26 11:32] LABS: BASO % 0.6 % (0-2.0); EOS % 1.4 % (0-4.5); HEMATOCRIT 39.9 % (32.4-45.2); HEMOGLOBIN 13.3 GM/dL (10.7-15.3); LYMPH % 23.5 % (8-40); MCH 29.5 pg (25.7-33.7); MCHC 33.3 g/dl (32.0-36.0); MEAN CELL VOLUME 88.5 fl (80-96); MEAN PLT VOLUME 7.8 fl (7.5-11.1); MONO % 6.8 % (3.8-10.2); NEUT % 67.7 % (42.8-82.8); PLATELET COUNT 413 10^3/uL (134-434); RBC 4.51 M/mm3 (3.60-5.2); RDW 13.4 % (11.6-15.6); WHITE BLOOD COUNT 5.1 K/mm3 (4.0-10.0)
[2021-10-26 11:59] LABS: CALCIUM 9.9 mg/dL (8.5-10.1)
[2021-10-26 12:00] LABS: ALBUMIN 3.4 g/dl (3.4-5.0); BLOOD UREA NITROGEN 12.4 mg/dL (7-18)
[2021-10-26 12:03] LABS: CREATININE 0.5 mg/dL (0.55-1.3)
[2021-10-26 12:04] LABS: BILIRUBIN,TOTAL 0.4 mg/dL (0.2-1); TOT PROT 7.7 g/dl (6.4-8.2)
[2021-10-26 16:09] VITALS: BP 131/85; PULSE 96; TEMP 98.8
== END 2021-10-26 11:05 | disposition home or self-care (01) ==
LOC: JONCCHEMO 06:29
PROVIDERS: ATTEND Internal Medicine Hematology & Oncology
DX: Z51.11 Encounter for antineoplastic chemotherapy (principal); C50.811 Malignant neoplasm of overlapping sites of right female breast; C50.212 Malignant neoplasm of upper-inner quadrant of left female breast; Z17.0 Estrogen receptor positive status [ER+]
CPT/HCPCS: 36415; 80053; 85025; 96402; J9202

== ENCOUNTER 2021-11-23 07:26 | Day surgery (SDC) | payer OTHER ==
[2021-11-23] MEDS ORDERED: LIDOCAINE 1% P/F 10 MG/ML VIAL ID ONE (10:00)
[2021-11-23] MEDS ORDERED: GOSERELIN ACETATE 3.6 MG IMPLANT SYRINGE SQ ONE (10:00)
[2021-11-23 12:00] LABS: BASO % 0.6 % (0-2.0); EOS % 0.8 % (0-4.5); HEMATOCRIT 42.3 % (32.4-45.2); HEMOGLOBIN 13.8 GM/dL (10.7-15.3); MCH 29.4 pg (25.7-33.7); MCHC 32.6 g/dl (32.0-36.0); MEAN CELL VOLUME 90.4 fl (80-96); MEAN PLT VOLUME 7.7 fl (7.5-11.1); MONO % 7.7 % (3.8-10.2); NEUT % 69.9 % (42.8-82.8); PLATELET COUNT 338 10^3/uL (134-434); RBC 4.68 M/mm3 (3.60-5.2); RDW 14.2 % (11.6-15.6); WHITE BLOOD COUNT 6.3 K/mm3 (4.0-10.0)
[2021-11-23 12:28] LABS: ALBUMIN 3.7 g/dl (3.4-5.0); BLOOD UREA NITROGEN 14.2 mg/dL (7-18); CALCIUM 9.9 mg/dL (8.5-10.1)
[2021-11-23 12:31] LABS: CREATININE 0.5 mg/dL (0.55-1.3)
[2021-11-23 12:33] LABS: BILIRUBIN,TOTAL 0.4 mg/dL (0.2-1); TOT PROT 7.5 g/dl (6.4-8.2)
[2021-11-23 17:53] VITALS: BP 122/92; PULSE 96; RESP 16; TEMP 98.4
== END 2021-11-23 14:30 | disposition home or self-care (01) ==
LOC: JONCCHEMO 07:26
PROVIDERS: ATTEND Internal Medicine Hematology & Oncology
DX: Z51.11 Encounter for antineoplastic chemotherapy (principal); C50.811 Malignant neoplasm of overlapping sites of right female breast; Z17.0 Estrogen receptor positive status [ER+]
CPT/HCPCS: 36415; 80053; 85025; 96402; J9202

== ENCOUNTER 2021-12-20 08:23 | Day surgery (SDC) | payer OTHER ==
[2021-12-20] MEDS ORDERED: GOSERELIN ACETATE 3.6 MG IMPLANT SYRINGE SQ ONE (10:00)
[2021-12-20] MEDS ORDERED: LIDOCAINE HCL 1%, 10 MG/ML (20ML VIAL) ID ONE (10:00)
[2021-12-20 11:41] LABS: BASO % 0.6 % (0-2.0); EOS % 0.5 % (0-4.5); HEMATOCRIT 39.5 % (32.4-45.2); HEMOGLOBIN 13.7 GM/dL (10.7-15.3); LYMPH % 9.7 % (8-40); MCH 30.8 pg (25.7-33.7); MCHC 34.6 g/dl (32.0-36.0); MEAN CELL VOLUME 88.9 fl (80-96); MEAN PLT VOLUME 7.5 fl (7.5-11.1); MONO % 6.9 % (3.8-10.2); NEUT % 82.3 % (42.8-82.8); PLATELET COUNT 300 10^3/uL (134-434); RBC 4.44 M/mm3 (3.60-5.2); RDW 14.2 % (11.6-15.6); WHITE BLOOD COUNT 5.3 K/mm3 (4.0-10.0)
[2021-12-20 12:00] LABS: ALBUMIN 3.7 g/dl (3.4-5.0); BLOOD UREA NITROGEN 13.4 mg/dL (7-18); CALCIUM 9.6 mg/dL (8.5-10.1)
[2021-12-20 12:03] LABS: CREATININE 0.5 mg/dL (0.55-1.3)
[2021-12-20 12:05] LABS: BILIRUBIN,TOTAL 0.5 mg/dL (0.2-1); TOT PROT 7.5 g/dl (6.4-8.2)
[2021-12-20 15:25] VITALS: BP 123/84; PULSE 87; RESP 20; TEMP 99
== END 2021-12-20 13:15 | disposition home or self-care (01) ==
LOC: JONCCHEMO 08:23
PROVIDERS: ATTEND Internal Medicine Hematology & Oncology
DX: Z51.11 Encounter for antineoplastic chemotherapy (principal); C50.811 Malignant neoplasm of overlapping sites of right female breast; Z17.0 Estrogen receptor positive status [ER+]
CPT/HCPCS: 36415; 80053; 85025; 96402; J9202

== ENCOUNTER 2022-01-15 06:37 | Day surgery (SDC) | payer OTHER ==
[2022-01-15] MEDS ORDERED: GOSERELIN ACETATE 3.6 MG IMPLANT SYRINGE SQ ONE (10:00)
[2022-01-15] MEDS ORDERED: LIDOCAINE HCL 1%, 10 MG/ML (20ML VIAL) ID ONE (10:00)
[2022-01-15 10:33] VITALS: BP 119/80; PULSE 77; RESP 18; TEMP 98.3
[2022-01-15 11:02] LABS: BASO % 0.3 % (0-2.0); EOS % 1.2 % (0-4.5); HEMATOCRIT 41.9 % (32.4-45.2); HEMOGLOBIN 13.6 GM/dL (10.7-15.3); MCH 29.6 pg (25.7-33.7); MCHC 32.4 g/dl (32.0-36.0); MEAN CELL VOLUME 91.4 fl (80-96); MEAN PLT VOLUME 7.9 fl (7.5-11.1); MONO % 7.4 % (3.8-10.2); NEUT % 69.1 % (42.8-82.8); PLATELET COUNT 358 10^3/uL (134-434); RBC 4.59 M/mm3 (3.60-5.2); RDW 13.6 % (11.6-15.6); WHITE BLOOD COUNT 5.8 K/mm3 (4.0-10.0)
[2022-01-15 11:23] LABS: CALCIUM 9.9 mg/dL (8.5-10.1)
[2022-01-15 11:24] LABS: ALBUMIN 3.6 g/dl (3.4-5.0); MAGNESIUM 2.3 mg/dL (1.8-2.4)
[2022-01-15 11:27] LABS: BILIRUBIN,DIRECT 0.1 mg/dL (0.0-0.2); CREATININE 0.5 mg/dL (0.55-1.3)
[2022-01-15 11:29] LABS: BILIRUBIN,TOTAL 0.6 mg/dL (0.2-1); TOT PROT 7.5 g/dl (6.4-8.2)
[2022-01-17 23:06] LABS: FOLLICLE STIMULATING HORMONE 6.4 mIU/mL (.); LUTEINIZING HORMONE < 0.3 mIU/mL (.)
== END 2022-01-15 10:45 | disposition home or self-care (01) ==
LOC: JONCCHEMO 06:37
PROVIDERS: ATTEND Internal Medicine Hematology & Oncology
PROC: 3E013GC Introduction of Other Therapeutic Substance into Subcutaneous Tissue, Percutaneous Approach (ICD-10-PCS; principal; 2022-01-15)
DX: Z51.11 Encounter for antineoplastic chemotherapy (principal); C50.811 Malignant neoplasm of overlapping sites of right female breast; Z17.0 Estrogen receptor positive status [ER+]
CPT/HCPCS: 36415; 80048; 80076; 82670; 83001; 83002; 83735; 84703; 85025; 96401; J9202

== ENCOUNTER 2022-02-19 10:14 | Day surgery (SDC) | payer OTHER ==
[2022-02-19 10:42] LABS: BASO % 0.9 % (0-2.0); EOS % 0.6 % (0-4.5); HEMATOCRIT 44.2 % (32.4-45.2); HEMOGLOBIN 14.4 GM/dL (10.7-15.3); MCH 30.1 pg (25.7-33.7); MCHC 32.5 g/dl (32.0-36.0); MEAN CELL VOLUME 92.6 fl (80-96); MONO % 7.6 % (3.8-10.2); NEUT % 69.9 % (42.8-82.8); PLATELET COUNT 294 10^3/uL (134-434); RBC 4.77 M/mm3 (3.60-5.2); RDW 13.8 % (11.6-15.6); WHITE BLOOD COUNT 5.7 K/mm3 (4.0-10.0)
[2022-02-19 11:05] LABS: ALBUMIN 3.9 g/dl (3.4-5.0); BLOOD UREA NITROGEN 14.1 mg/dL (7-18); CALCIUM 10.2 mg/dL (8.5-10.1); MAGNESIUM 2.2 mg/dL (1.8-2.4)
[2022-02-19 11:08] LABS: BILIRUBIN,DIRECT 0.1 mg/dL (0.0-0.2); CREATININE 0.5 mg/dL (0.55-1.3)
[2022-02-19 11:10] LABS: BILIRUBIN,TOTAL 0.7 mg/dL (0.2-1); TOT PROT 7.5 g/dl (6.4-8.2)
[2022-02-19 18:12] VITALS: BP 114/91; PULSE 76; RESP 18; TEMP 98.5
[2022-02-20 08:08] LABS: LUTEINIZING HORMONE < 0.3 mIU/mL (.)
[2022-02-20 08:08] LABS: CARCINOEMBRYONIC ANTIGEN 1.9 ng/mL (0.0-4.7)
== END 2022-02-19 10:50 | disposition home or self-care (01) ==
LOC: JONCCHEMO 10:14
PROVIDERS: ATTEND Internal Medicine Hematology & Oncology
DX: Z51.11 Encounter for antineoplastic chemotherapy (principal); C50.811 Malignant neoplasm of overlapping sites of right female breast; Z17.0 Estrogen receptor positive status [ER+]
CPT/HCPCS: 36415; 80048; 80076; 82378; 82670; 83001; 83002; 83735; 85025; 86300; 96402; J9202

== ENCOUNTER 2022-04-17 11:32 | Day surgery (SDC) | payer OTHER ==
[2022-04-17] MEDS ORDERED: GOSERELIN ACETATE 3.6 MG IMPLANT SYRINGE SQ ONE (12:15)
[2022-04-17] MEDS ORDERED: LIDOCAINE HCL 1%, 10 MG/ML (20ML VIAL) ID ONE (12:15)
[2022-04-17 12:29] LABS: CALCIUM 10.3 mg/dL (8.5-10.1)
[2022-04-17 12:30] LABS: BASO % 0.3 % (0-2.0); BLOOD UREA NITROGEN 15.5 mg/dL (7-18); EOS % 1.2 % (0-4.5); HEMATOCRIT 44.2 % (32.4-45.2); HEMOGLOBIN 14.5 GM/dL (10.7-15.3); LYMPH % 19.8 % (8-40); MAGNESIUM 2.3 mg/dL (1.8-2.4); MCH 30.6 pg (25.7-33.7); MCHC 32.9 g/dl (32.0-36.0); MEAN CELL VOLUME 92.9 fl (80-96); MEAN PLT VOLUME 8.1 fl (7.5-11.1); MONO % 6.5 % (3.8-10.2); NEUT % 72.2 % (42.8-82.8); PLATELET COUNT 312 10^3/uL (134-434); RBC 4.75 M/mm3 (3.60-5.2); RDW 13.3 % (11.6-15.6)
[2022-04-17 12:33] LABS: CREATININE 0.5 mg/dL (0.55-1.3)
[2022-04-17 12:38] LABS: ALBUMIN 3.7 g/dl (3.4-5.0)
[2022-04-17 12:40] LABS: BILIRUBIN,DIRECT 0.1 mg/dL (0.0-0.2)
[2022-04-17 12:42] LABS: BILIRUBIN,TOTAL 0.6 mg/dL (0.2-1)
[2022-04-17 12:43] LABS: TOT PROT 7.4 g/dl (6.4-8.2)
[2022-04-17 14:16] VITALS: BP 116/76; PULSE 76; RESP 18; TEMP 98.5
[2022-04-18] MEDS ORDERED: GOSERELIN ACETATE 3.6 MG IMPLANT SYRINGE SQ ONE (10:00)
[2022-04-18] MEDS ORDERED: LIDOCAINE HCL 1%, 10 MG/ML (20ML VIAL) ID ONE (10:00)
[2022-04-18 10:07] LABS: CARCINOEMBRYONIC ANTIGEN 1.9 ng/mL (0.0-4.7)
== END 2022-04-17 12:45 | disposition home or self-care (01) ==
LOC: JONCCHEMO 11:32
PROVIDERS: ATTEND Internal Medicine Hematology & Oncology
DX: Z51.11 Encounter for antineoplastic chemotherapy (principal); C50.811 Malignant neoplasm of overlapping sites of right female breast; Z17.0 Estrogen receptor positive status [ER+]
CPT/HCPCS: 36415; 80048; 80076; 82378; 82670; 83735; 84703; 85025; 86300; 96402; J9202

== ENCOUNTER 2022-05-23 11:05 | Day surgery (SDC) | payer OTHER ==
[2022-05-23 11:35] LABS: BASO % 1.1 % (0-2.0); EOS % 0.9 % (0-4.5); HEMATOCRIT 41.1 % (32.4-45.2); HEMOGLOBIN 13.5 GM/dL (10.7-15.3); LYMPH % 18.5 % (8-40); MCH 30.6 pg (25.7-33.7); MCHC 32.9 g/dl (32.0-36.0); MEAN PLT VOLUME 7.6 fl (7.5-11.1); MONO % 5.3 % (3.8-10.2); NEUT % 74.2 % (42.8-82.8); PLATELET COUNT 360 10^3/uL (134-434); RBC 4.42 M/mm3 (3.60-5.2); RDW 12.5 % (11.6-15.6); WHITE BLOOD COUNT 6.8 K/mm3 (4.0-10.0)
[2022-05-23 12:03] LABS: CALCIUM 10.1 mg/dL (8.5-10.1)
[2022-05-23 12:04] LABS: ALBUMIN 3.6 g/dl (3.4-5.0); BLOOD UREA NITROGEN 17.2 mg/dL (7-18); MAGNESIUM 2.3 mg/dL (1.8-2.4)
[2022-05-23 12:07] LABS: CREATININE 0.5 mg/dL (0.55-1.3); PHOSPHOROUS 3.7 mg/dL (2.5-4.9)
[2022-05-23 12:08] LABS: BILIRUBIN,TOTAL 0.5 mg/dL (0.2-1)
[2022-05-23 12:09] LABS: TOT PROT 7.3 g/dl (6.4-8.2)
[2022-05-23 16:27] VITALS: BP 139/70; PULSE 80; RESP 20; TEMP 98.1
[2022-05-24 08:06] LABS: FOLLICLE STIMULATING HORMONE 6.5 mIU/mL (.); LUTEINIZING HORMONE 0.5 mIU/mL (.); PARATHYROID HORM INTACT 42 pg/mL (15-65)
== END 2022-05-23 12:25 | disposition home or self-care (01) ==
LOC: JONCCHEMO 11:05
PROVIDERS: ATTEND Internal Medicine Hematology & Oncology
DX: Z51.11 Encounter for antineoplastic chemotherapy (principal); C50.811 Malignant neoplasm of overlapping sites of right female breast
CPT/HCPCS: 36415; 80053; 82378; 82397; 82670; 82977; 83001; 83002; 83735; 83970; 84100; 84703; 85025; 86300; 96402; J9202

== ENCOUNTER 2022-06-20 11:04 | Day surgery (SDC) | payer OTHER ==
[2022-06-20 12:01] LABS: EOS % 1.3 % (0-4.5); HEMOGLOBIN 13.8 GM/dL (10.7-15.3); LYMPH % 23.3 % (8-40); MCH 30.9 pg (25.7-33.7); MCHC 33.5 g/dl (32.0-36.0); MEAN CELL VOLUME 92.2 fl (80-96); MEAN PLT VOLUME 8.2 fl (7.5-11.1); MONO % 5.8 % (3.8-10.2); NEUT % 68.6 % (42.8-82.8); PLATELET COUNT 294 10^3/uL (134-434); RBC 4.45 M/mm3 (3.60-5.2); WHITE BLOOD COUNT 5.5 K/mm3 (4.0-10.0)
[2022-06-20 12:30] LABS: ALBUMIN 3.6 g/dl (3.4-5.0); BLOOD UREA NITROGEN 15.5 mg/dL (7-18); CALCIUM 9.7 mg/dL (8.5-10.1); MAGNESIUM 2.2 mg/dL (1.8-2.4)
[2022-06-20 12:32] LABS: BILIRUBIN,DIRECT 0.2 mg/dL (0.0-0.2)
[2022-06-20 12:33] LABS: CREATININE 0.4 mg/dL (0.55-1.3)
[2022-06-20 12:34] LABS: BILIRUBIN,TOTAL 0.4 mg/dL (0.2-1); TOT PROT 7.2 g/dl (6.4-8.2)
[2022-06-20 16:10] VITALS: BP 150/72; PULSE 81; RESP 18; TEMP 98.2
[2022-06-21 08:06] LABS: CARCINOEMBRYONIC ANTIGEN 1.6 ng/mL (0.0-4.7); FOLLICLE STIMULATING HORMONE 4.7 mIU/mL (.); LUTEINIZING HORMONE < 0.3 mIU/mL (.)
== END 2022-06-20 12:30 | disposition home or self-care (01) ==
LOC: JONCCHEMO 11:04
PROVIDERS: ATTEND Internal Medicine Hematology & Oncology
DX: Z51.11 Encounter for antineoplastic chemotherapy (principal); C50.812 Malignant neoplasm of overlapping sites of left female breast; C50.811 Malignant neoplasm of overlapping sites of right female breast
CPT/HCPCS: 36415; 80048; 80076; 82306; 82378; 82670; 83001; 83002; 83735; 84703; 85025; 86300; 86301; 96402; J9202

== ENCOUNTER 2022-07-18 11:18 | Day surgery (SDC) | payer OTHER ==
[2022-07-18 11:42] LABS: BASO % 0.8 % (0-2.0); EOS % 1.7 % (0-4.5); HEMATOCRIT 43.5 % (32.4-45.2); HEMOGLOBIN 14.5 GM/dL (10.7-15.3); LYMPH % 24.4 % (8-40); MCH 31.1 pg (25.7-33.7); MCHC 33.3 g/dl (32.0-36.0); MEAN CELL VOLUME 93.4 fl (80-96); MEAN PLT VOLUME 7.8 fl (7.5-11.1); MONO % 6.9 % (3.8-10.2); NEUT % 66.2 % (42.8-82.8); PLATELET COUNT 296 10^3/uL (134-434); RBC 4.66 M/mm3 (3.60-5.2); RDW 13.2 % (11.6-15.6); WHITE BLOOD COUNT 5.7 K/mm3 (4.0-10.0)
[2022-07-18 12:03] LABS: ALBUMIN 3.7 g/dl (3.4-5.0); BLOOD UREA NITROGEN 16.4 mg/dL (7-18); CALCIUM 9.6 mg/dL (8.5-10.1); MAGNESIUM 2.1 mg/dL (1.8-2.4)
[2022-07-18 12:06] LABS: BILIRUBIN,DIRECT 0.1 mg/dL (0.0-0.2); CREATININE 0.5 mg/dL (0.55-1.3)
[2022-07-18 12:08] LABS: BILIRUBIN,TOTAL 0.4 mg/dL (0.2-1); TOT PROT 7.7 g/dl (6.4-8.2)
[2022-07-18 16:18] VITALS: BP 117/80; PULSE 77; RESP 18; TEMP 98.1
[2022-07-20 07:08] LABS: CARCINOEMBRYONIC ANTIGEN 1.8 ng/mL (0.0-4.7)
[2022-07-20 08:18] LABS: FOLLICLE STIMULATING HORMONE 5.8 mIU/mL (.); LUTEINIZING HORMONE < 0.3 mIU/mL (.)
== END 2022-07-18 12:30 | disposition home or self-care (01) ==
LOC: JONCCHEMO 11:18
PROVIDERS: ATTEND Internal Medicine Hematology & Oncology
DX: Z51.11 Encounter for antineoplastic chemotherapy (principal); C50.812 Malignant neoplasm of overlapping sites of left female breast
CPT/HCPCS: 36415; 80048; 80076; 82378; 82670; 83001; 83002; 83735; 84703; 85025; 86300; 96402; J9202

== ENCOUNTER 2022-08-14 11:32 | Day surgery (SDC) | payer OTHER ==
[2022-08-14 12:52] LABS: BASO % 0.5 % (0-2.0); EOS % 1.7 % (0-4.5); HEMATOCRIT 42.6 % (32.4-45.2); HEMOGLOBIN 14.3 GM/dL (10.7-15.3); LYMPH % 16.4 % (8-40); MCH 30.5 pg (25.7-33.7); MCHC 33.6 g/dl (32.0-36.0); MEAN CELL VOLUME 90.8 fl (80-96); MEAN PLT VOLUME 8.1 fl (7.5-11.1); MONO % 5.6 % (3.8-10.2); NEUT % 75.8 % (42.8-82.8); PLATELET COUNT 308 10^3/uL (134-434); RBC 4.69 M/mm3 (3.60-5.2); RDW 13.2 % (11.6-15.6); WHITE BLOOD COUNT 7.8 K/mm3 (4.0-10.0)
[2022-08-14 13:04] LABS: BLOOD UREA NITROGEN 14.8 mg/dL (7-18)
[2022-08-14 13:05] LABS: ALBUMIN 3.3 g/dl (3.4-5.0); MAGNESIUM 2.1 mg/dL (1.8-2.4)
[2022-08-14 13:06] VITALS: BP 119/74; PULSE 86; RESP 18; TEMP 98.8
[2022-08-14 13:08] LABS: BILIRUBIN,DIRECT 0.1 mg/dL (0.0-0.2); CREATININE 0.4 mg/dL (0.55-1.3)
[2022-08-14 13:09] LABS: TOT PROT 7.2 g/dl (6.4-8.2)
[2022-08-14 13:10] LABS: BILIRUBIN,TOTAL 0.3 mg/dL (0.2-1)
[2022-08-15 08:06] LABS: CARCINOEMBRYONIC ANTIGEN 1.5 ng/mL (0.0-4.7)
[2022-08-20 08:06] LABS: FOLLICLE STIMULATING HORMONE 4.4 mIU/mL (.); LUTEINIZING HORMONE 0.6 mIU/mL (.)
== END 2022-08-14 12:50 | disposition home or self-care (01) ==
LOC: JONCCHEMO 11:32
PROVIDERS: ATTEND Internal Medicine Hematology & Oncology
DX: Z51.11 Encounter for antineoplastic chemotherapy (principal); C50.812 Malignant neoplasm of overlapping sites of left female breast
CPT/HCPCS: 36415; 80048; 80061; 80076; 82378; 82670; 83001; 83002; 83036; 83735; 84439; 84443; 84703; 85025; 86300; 96402; J9202

== ENCOUNTER 2022-09-12 10:55 | Day surgery (SDC) | payer OTHER ==
[~2022-09-12 10:55] MED LIST changes: +ZOLEDRONIC ACID/MAN/WATER 5 MG/100 ML INFUS..BTL IVPB ONE
[2022-09-12 11:35] LABS: BASO % 0.7 % (0-2.0); EOS % 3.6 % (0-4.5); HEMATOCRIT 41.5 % (32.4-45.2); HEMOGLOBIN 14.4 GM/dL (10.7-15.3); LYMPH % 26.3 % (8-40); MCH 31.7 pg (25.7-33.7); MCHC 34.8 g/dl (32.0-36.0); MEAN CELL VOLUME 91.2 fl (80-96); MEAN PLT VOLUME 8.3 fl (7.5-11.1); NEUT % 61.4 % (42.8-82.8); PLATELET COUNT 270 10^3/uL (134-434); RBC 4.54 M/mm3 (3.60-5.2); RDW 13.2 % (11.6-15.6); WHITE BLOOD COUNT 5.3 K/mm3 (4.0-10.0)
[2022-09-12 12:01] LABS: POTASSIUM 4.3 mmol/L (3.5-5.1)
[2022-09-12 12:04] LABS: ALBUMIN 3.8 g/dl (3.4-5.0); BLOOD UREA NITROGEN 17.3 mg/dL (7-18)
[2022-09-12 12:06] LABS: BILIRUBIN,DIRECT 0.2 mg/dL (0.0-0.2); CALCIUM 10.3 mg/dL (8.5-10.1)
[2022-09-12 12:07] LABS: CREATININE 0.5 mg/dL (0.55-1.3); MAGNESIUM 2.3 mg/dL (1.8-2.4)
[2022-09-12 12:08] LABS: BILIRUBIN,TOTAL 0.5 mg/dL (0.2-1); TOT PROT 7.4 g/dl (6.4-8.2)
[2022-09-12 18:05] VITALS: BP 126/77; PULSE 75; RESP 20; TEMP 98.1
[2022-09-13 08:15] LABS: LUTEINIZING HORMONE < 0.3 mIU/mL (.)
== END 2022-09-12 13:45 | disposition home or self-care (01) ==
LOC: JONCCHEMO 10:55 → J7W 11:19 → JONCCHEMO 13:45
PROVIDERS: ATTEND Internal Medicine Hematology & Oncology
PROC: 3E033GC Introduction of Other Therapeutic Substance into Peripheral Vein, Percutaneous Approach (ICD-10-PCS; principal; 2022-09-12)
PROC: 3E013GC Introduction of Other Therapeutic Substance into Subcutaneous Tissue, Percutaneous Approach (ICD-10-PCS; 2022-09-12)
DX: Z51.11 Encounter for antineoplastic chemotherapy (principal); C50.812 Malignant neoplasm of overlapping sites of left female breast
CPT/HCPCS: 36415; 80048; 80076; 82378; 82670; 83001; 83002; 83735; 84703; 85025; 86300; 96365; 96402; J3489; J9202

== ENCOUNTER 2022-10-10 11:46 | Day surgery (SDC) | payer OTHER ==
[~2022-10-10 11:46] MED LIST changes: -ZOLEDRONIC ACID/MAN/WATER 5 MG/100 ML INFUS..BTL IVPB ONE
[2022-10-10 13:07] LABS: BASO % 0.7 % (0-2.0); EOS % 1.7 % (0-4.5); HEMOGLOBIN 14.7 GM/dL (10.7-15.3); LYMPH % 29.5 % (8-40); MCH 30.1 pg (25.7-33.7); MEAN CELL VOLUME 94.1 fl (80-96); MEAN PLT VOLUME 8.8 fl (7.5-11.1); MONO % 5.9 % (3.8-10.2); NEUT % 62.2 % (42.8-82.8); PLATELET COUNT 276 10^3/uL (134-434); RBC 4.89 M/mm3 (3.60-5.2); RDW 13.4 % (11.6-15.6); WHITE BLOOD COUNT 5.7 K/mm3 (4.0-10.0)
[2022-10-10 13:29] LABS: POTASSIUM 3.8 mmol/L (3.5-5.1)
[2022-10-10 13:31] LABS: ALBUMIN 4.1 g/dl (3.4-5.0); BLOOD UREA NITROGEN 14.6 mg/dL (7-18); CALCIUM 9.8 mg/dL (8.5-10.1); MAGNESIUM 2.3 mg/dL (1.8-2.4)
[2022-10-10 13:34] LABS: BILIRUBIN,DIRECT 0.2 mg/dL (0.0-0.2); CREATININE 0.4 mg/dL (0.55-1.3)
[2022-10-10 13:36] LABS: BILIRUBIN,TOTAL 0.6 mg/dL (0.2-1); TOT PROT 7.9 g/dl (6.4-8.2)
[2022-10-10 15:42] VITALS: BP 115/71; PULSE 67; RESP 18; TEMP 98.4
[2022-10-11 08:07] LABS: LUTEINIZING HORMONE 0.5 mIU/mL (.)
== END 2022-10-10 12:30 | disposition home or self-care (01) ==
LOC: JONCCHEMO 11:46 → J7W 11:50 → JONCCHEMO 12:30
PROVIDERS: ATTEND Internal Medicine Hematology & Oncology
DX: Z51.11 Encounter for antineoplastic chemotherapy (principal); C50.919 Malignant neoplasm of unspecified site of unspecified female breast
CPT/HCPCS: 36415; 80048; 80076; 82378; 82670; 83001; 83002; 83735; 84703; 85025; 86300; 96402; J9202

== ENCOUNTER 2022-11-07 11:17 | Day surgery (SDC) | payer OTHER ==
[2022-11-07 11:46] LABS: BASO % 0.6 % (0-2.0); EOS % 1.2 % (0-4.5); HEMATOCRIT 45.9 % (32.4-45.2); HEMOGLOBIN 14.7 GM/dL (10.7-15.3); LYMPH % 28.2 % (8-40); MCHC 31.9 g/dl (32.0-36.0); MEAN CELL VOLUME 94.1 fl (80-96); MEAN PLT VOLUME 8.5 fl (7.5-11.1); PLATELET COUNT 259 10^3/uL (134-434); RBC 4.88 M/mm3 (3.60-5.2); RDW 13.4 % (11.6-15.6); WHITE BLOOD COUNT 5.5 K/mm3 (4.0-10.0)
[2022-11-07 12:08] LABS: POTASSIUM 4.7 mmol/L (3.5-5.1)
[2022-11-07 12:10] LABS: BLOOD UREA NITROGEN 18.8 mg/dL (7-18); CALCIUM 10.1 mg/dL (8.5-10.1); MAGNESIUM 2.3 mg/dL (1.8-2.4)
[2022-11-07 12:14] LABS: CREATININE 0.5 mg/dL (0.55-1.3)
[2022-11-07 12:15] LABS: BILIRUBIN,TOTAL 0.5 mg/dL (0.2-1); TOT PROT 7.2 g/dl (6.4-8.2)
[2022-11-07 17:14] VITALS: BP 114/83; PULSE 67; RESP 18; TEMP 98.2
[2022-11-08 08:07] LABS: FOLLICLE STIMULATING HORMONE 5.2 mIU/mL (.); LUTEINIZING HORMONE < 0.3 mIU/mL (.)
== END 2022-11-07 12:00 | disposition home or self-care (01) ==
LOC: JONCCHEMO 11:17 → J7W 11:21 → JONCCHEMO 12:00
PROVIDERS: ATTEND Internal Medicine Hematology & Oncology
DX: Z51.11 Encounter for antineoplastic chemotherapy (principal); C50.919 Malignant neoplasm of unspecified site of unspecified female breast
CPT/HCPCS: 36415; 80053; 82306; 82378; 82670; 83001; 83002; 83735; 85025; 86300; 96402; J9202

== ENCOUNTER 2022-12-05 11:33 | Day surgery (SDC) | payer OTHER ==
[2022-12-05 12:26] LABS: BASO % 0.5 % (0-2.0); EOS % 1.4 % (0-4.5); HEMATOCRIT 46.4 % (32.4-45.2); HEMOGLOBIN 15.3 GM/dL (10.7-15.3); LYMPH % 29.3 % (8-40); MCH 30.6 pg (25.7-33.7); MEAN CELL VOLUME 92.8 fl (80-96); MEAN PLT VOLUME 7.8 fl (7.5-11.1); MONO % 6.9 % (3.8-10.2); NEUT % 61.9 % (42.8-82.8); PLATELET COUNT 264 10^3/uL (134-434); RDW 13.3 % (11.6-15.6); WHITE BLOOD COUNT 4.9 K/mm3 (4.0-10.0)
[2022-12-05 12:50] LABS: POTASSIUM 4.6 mmol/L (3.5-5.1)
[2022-12-05 12:51] LABS: CALCIUM 9.5 mg/dL (8.5-10.1)
[2022-12-05 12:52] LABS: ALBUMIN 3.8 g/dl (3.4-5.0); MAGNESIUM 2.5 mg/dL (1.8-2.4)
[2022-12-05 12:55] LABS: CREATININE 0.4 mg/dL (0.55-1.3)
[2022-12-05 12:57] LABS: BILIRUBIN,TOTAL 0.4 mg/dL (0.2-1); TOT PROT 7.1 g/dl (6.4-8.2)
[2022-12-05 17:20] VITALS: BP 103/68; PULSE 63; RESP 18; TEMP 97.9
[2022-12-06 08:09] LABS: FOLLICLE STIMULATING HORMONE 4.5 mIU/mL (.); LUTEINIZING HORMONE < 0.3 mIU/mL (.)
== END 2022-12-05 12:40 | disposition home or self-care (01) ==
LOC: JONCCHEMO 11:33 → J7W 11:35 → JONCCHEMO 12:40
PROVIDERS: ATTEND Internal Medicine Hematology & Oncology
DX: Z51.11 Encounter for antineoplastic chemotherapy (principal); C50.812 Malignant neoplasm of overlapping sites of left female breast; Z17.0 Estrogen receptor positive status [ER+]
CPT/HCPCS: 36415; 80053; 82306; 82378; 82670; 83001; 83002; 83735; 84703; 85025; 86300; 96402; J9202

== ENCOUNTER 2023-01-02 11:14 | Day surgery (SDC) | payer OTHER ==
[2023-01-02 11:49] LABS: BASO % 0.8 % (0-2.0); EOS % 0.9 % (0-4.5); HEMATOCRIT 45.9 % (32.4-45.2); HEMOGLOBIN 15.5 GM/dL (10.7-15.3); LYMPH % 21.5 % (8-40); MCH 31.2 pg (25.7-33.7); MCHC 33.8 g/dl (32.0-36.0); MEAN CELL VOLUME 92.4 fl (80-96); MEAN PLT VOLUME 8.1 fl (7.5-11.1); MONO % 4.9 % (3.8-10.2); NEUT % 71.9 % (42.8-82.8); PLATELET COUNT 264 10^3/uL (134-434); RBC 4.97 M/mm3 (3.60-5.2); RDW 13.3 % (11.6-15.6); WHITE BLOOD COUNT 5.9 K/mm3 (4.0-10.0)
[2023-01-02 12:06] LABS: POTASSIUM 4.1 mmol/L (3.5-5.1)
[2023-01-02 12:08] LABS: BLOOD UREA NITROGEN 14.3 mg/dL (7-18); CALCIUM 9.6 mg/dL (8.5-10.1); MAGNESIUM 2.2 mg/dL (1.8-2.4)
[2023-01-02 12:11] LABS: CREATININE 0.5 mg/dL (0.55-1.3)
[2023-01-02 12:13] LABS: BILIRUBIN,TOTAL 0.4 mg/dL (0.2-1); TOT PROT 7.5 g/dl (6.4-8.2)
[2023-01-02 17:46] VITALS: BP 114/75; PULSE 65; RESP 18; TEMP 97.8
[2023-01-03 08:08] LABS: FOLLICLE STIMULATING HORMONE 5.8 mIU/mL (.); LUTEINIZING HORMONE < 0.3 mIU/mL (.)
== END 2023-01-02 13:25 | disposition home or self-care (01) ==
LOC: JONCCHEMO 11:14 → J7W 11:20 → JONCCHEMO 13:25
PROVIDERS: ATTEND Internal Medicine Hematology & Oncology
DX: Z51.11 Encounter for antineoplastic chemotherapy (principal); C50.811 Malignant neoplasm of overlapping sites of right female breast; Z17.0 Estrogen receptor positive status [ER+]
CPT/HCPCS: 36415; 80053; 82306; 82378; 82670; 83001; 83002; 83735; 84703; 85025; 86300; 93971; 96402; J9202

== ENCOUNTER 2023-02-27 11:08 | Day surgery (SDC) | payer OTHER ==
[2023-02-27 12:30] LABS: BASO % 0.6 % (0-2.0); HEMATOCRIT 45.3 % (32.4-45.2); HEMOGLOBIN 15.1 GM/dL (10.7-15.3); LYMPH % 26.4 % (8-40); MCH 31.2 pg (25.7-33.7); MCHC 33.4 g/dl (32.0-36.0); MEAN CELL VOLUME 93.5 fl (80-96); MEAN PLT VOLUME 8.3 fl (7.5-11.1); MONO % 6.8 % (3.8-10.2); NEUT % 64.2 % (42.8-82.8); PLATELET COUNT 280 10^3/uL (134-434); RBC 4.84 M/mm3 (3.60-5.2); RDW 13.3 % (11.6-15.6); WHITE BLOOD COUNT 4.8 K/mm3 (4.0-10.0)
[2023-02-27 12:46] LABS: POTASSIUM 4.2 mmol/L (3.5-5.1)
[2023-02-27 12:48] LABS: ALBUMIN 3.8 g/dl (3.4-5.0); BLOOD UREA NITROGEN 18.7 mg/dL (7-18); MAGNESIUM 2.4 mg/dL (1.8-2.4)
[2023-02-27 12:51] LABS: CREATININE 0.5 mg/dL (0.55-1.3)
[2023-02-27 12:53] LABS: BILIRUBIN,TOTAL 0.6 mg/dL (0.2-1); TOT PROT 7.1 g/dl (6.4-8.2)
[2023-02-27 15:35] VITALS: BP 110/64; PULSE 66; RESP 18; TEMP 98.2
[2023-02-28 10:11] LABS: LUTEINIZING HORMONE < 0.3 mIU/mL (.)
== END 2023-02-27 12:30 | disposition home or self-care (01) ==
LOC: JONCCHEMO 11:08
PROVIDERS: ATTEND Internal Medicine Hematology & Oncology
DX: Z51.11 Encounter for antineoplastic chemotherapy (principal); C50.212 Malignant neoplasm of upper-inner quadrant of left female breast; Z17.0 Estrogen receptor positive status [ER+]; M54.9 Dorsalgia, unspecified
CPT/HCPCS: 36415; 72100-TC-FY; 80053; 82306; 82378; 82670; 83001; 83002; 83735; 84703; 85025; 86300; 96402; J9202

== ENCOUNTER 2023-04-03 12:07 | Day surgery (SDC) | payer OTHER ==
[2023-04-03 12:46] LABS: BASO % 0.4 % (0-2.0); EOS % 1.9 % (0-4.5); HEMATOCRIT 43.9 % (32.4-45.2); HEMOGLOBIN 14.8 GM/dL (10.7-15.3); LYMPH % 30.7 % (8-40); MCH 31.5 pg (25.7-33.7); MCHC 33.7 g/dl (32.0-36.0); MEAN CELL VOLUME 93.6 fl (80-96); MEAN PLT VOLUME 8.1 fl (7.5-11.1); MONO % 6.8 % (3.8-10.2); NEUT % 60.2 % (42.8-82.8); PLATELET COUNT 281 10^3/uL (134-434); RBC 4.69 M/mm3 (3.60-5.2); RDW 13.1 % (11.6-15.6); WHITE BLOOD COUNT 5.1 K/mm3 (4.0-10.0)
[2023-04-03 13:02] LABS: POTASSIUM 3.9 mmol/L (3.5-5.1)
[2023-04-03 13:04] LABS: ALBUMIN 3.9 g/dl (3.4-5.0); BLOOD UREA NITROGEN 18.7 mg/dL (7-18); CALCIUM 9.5 mg/dL (8.5-10.1); MAGNESIUM 2.5 mg/dL (1.8-2.4)
[2023-04-03 13:07] LABS: CREATININE 0.5 mg/dL (0.55-1.3)
[2023-04-03 13:09] LABS: BILIRUBIN,TOTAL 0.6 mg/dL (0.2-1); TOT PROT 7.4 g/dl (6.4-8.2)
[2023-04-03 15:10] VITALS: BP 117/69; PULSE 70; RESP 20; TEMP 97.8
[2023-04-04 22:07] LABS: LUTEINIZING HORMONE 0.4 mIU/mL (.)
== END 2023-04-03 12:30 | disposition home or self-care (01) ==
LOC: JONCCHEMO 12:07 → J7W 12:09 → JONCCHEMO 12:30
PROVIDERS: ATTEND Internal Medicine Hematology & Oncology
DX: Z51.11 Encounter for antineoplastic chemotherapy (principal); C50.212 Malignant neoplasm of upper-inner quadrant of left female breast; Z17.0 Estrogen receptor positive status [ER+]
CPT/HCPCS: 36415; 80053; 82306; 82378; 82670; 83001; 83002; 83735; 84703; 85025; 86300; 96402; J9202

== ENCOUNTER 2023-05-08 10:48 | Day surgery (SDC) | payer OTHER ==
[2023-05-08 11:36] LABS: BASO % 0.6 % (0-2.0); EOS % 1.2 % (0-4.5); HEMATOCRIT 45.2 % (32.4-45.2); HEMOGLOBIN 14.8 GM/dL (10.7-15.3); LYMPH % 32.4 % (8-40); MCH 31.2 pg (25.7-33.7); MCHC 32.8 g/dl (32.0-36.0); MEAN CELL VOLUME 95.3 fl (80-96); MEAN PLT VOLUME 8.3 fl (7.5-11.1); MONO % 6.7 % (3.8-10.2); NEUT % 59.1 % (42.8-82.8); PLATELET COUNT 255 10^3/uL (134-434); RBC 4.75 M/mm3 (3.60-5.2); RDW 13.4 % (11.6-15.6); WHITE BLOOD COUNT 4.3 K/mm3 (4.0-10.0)
[2023-05-08 11:54] LABS: POTASSIUM 4.3 mmol/L (3.5-5.1)
[2023-05-08 11:56] LABS: ALBUMIN 3.7 g/dl (3.4-5.0); CALCIUM 9.4 mg/dL (8.5-10.1)
[2023-05-08 11:57] LABS: BLOOD UREA NITROGEN 16.9 mg/dL (7-18); MAGNESIUM 1.9 mg/dL (1.8-2.4)
[2023-05-08 11:59] LABS: CREATININE 0.5 mg/dL (0.55-1.3)
[2023-05-08 12:01] LABS: BILIRUBIN,TOTAL 0.4 mg/dL (0.2-1); TOT PROT 7.3 g/dl (6.4-8.2)
[2023-05-08 12:21] VITALS: BP 125/73; PULSE 74; RESP 18; TEMP 98.7
[2023-05-09 10:07] LABS: FOLLICLE STIMULATING HORMONE 4.7 mIU/mL (.); LUTEINIZING HORMONE < 0.3 mIU/mL (.)
== END 2023-05-08 12:00 | disposition home or self-care (01) ==
LOC: JONCCHEMO 10:48 → J7W 10:52 → JONCCHEMO 12:00
PROVIDERS: ATTEND Internal Medicine Hematology & Oncology
DX: Z51.11 Encounter for antineoplastic chemotherapy (principal); C50.212 Malignant neoplasm of upper-inner quadrant of left female breast
CPT/HCPCS: 36415; 80053; 82306; 82378; 82670; 83001; 83002; 83735; 84703; 85025; 86300; 96402; J9202

== ENCOUNTER 2023-06-05 09:01 | Day surgery (SDC) | payer OTHER ==
[2023-06-05 09:44] LABS: BASO % 1.2 % (0-2.0); EOS % 1.3 % (0-4.5); HEMATOCRIT 44.7 % (32.4-45.2); HEMOGLOBIN 14.8 GM/dL (10.7-15.3); MCH 31.6 pg (25.7-33.7); MEAN CELL VOLUME 95.6 fl (80-96); MEAN PLT VOLUME 8.4 fl (7.5-11.1); MONO % 5.2 % (3.8-10.2); NEUT % 62.3 % (42.8-82.8); PLATELET COUNT 258 10^3/uL (134-434); RBC 4.68 M/mm3 (3.60-5.2); RDW 13.2 % (11.6-15.6); WHITE BLOOD COUNT 4.9 K/mm3 (4.0-10.0)
[2023-06-05] MEDS ORDERED: LIDOCAINE HCL 1%, 10 MG/ML (20ML VIAL) ID ONE (10:00)
[2023-06-05] MEDS ORDERED: GOSERELIN ACETATE 3.6 MG IMPLANT SYRINGE SQ ONE (10:00)
[2023-06-05 10:18] LABS: POTASSIUM 4.1 mmol/L (3.5-5.1)
[2023-06-05 10:40] LABS: ALBUMIN 3.8 g/dl (3.4-5.0); BLOOD UREA NITROGEN 12.3 mg/dL (7-18); CALCIUM 10.2 mg/dL (8.5-10.1); MAGNESIUM 2.1 mg/dL (1.8-2.4)
[2023-06-05 10:43] LABS: CREATININE 0.6 mg/dL (0.55-1.3)
[2023-06-05 10:45] LABS: BILIRUBIN,TOTAL 0.6 mg/dL (0.2-1); TOT PROT 7.4 g/dl (6.4-8.2)
[2023-06-05 14:48] VITALS: BP 131/70; PULSE 73; RESP 18; TEMP 98.1
[2023-06-06 08:05] LABS: CARCINOEMBRYONIC ANTIGEN 2.1 ng/mL (0.0-4.7); FOLLICLE STIMULATING HORMONE 4.9 mIU/mL (.); LUTEINIZING HORMONE 0.5 mIU/mL (.)
== END 2023-06-05 09:45 | disposition home or self-care (01) ==
LOC: JONCCHEMO 09:01 → J7W 09:03 → JONCCHEMO 09:45
PROVIDERS: ATTEND Internal Medicine Hematology & Oncology
DX: Z51.11 Encounter for antineoplastic chemotherapy (principal); C50.212 Malignant neoplasm of upper-inner quadrant of left female breast
CPT/HCPCS: 36415; 80053; 82378; 82670; 83001; 83002; 83735; 85025; 86300; 96402; J9202

== ENCOUNTER 2023-07-03 09:23 | Day surgery (SDC) | payer OTHER ==
[2023-07-03 09:53] VITALS: BP 117/73; PULSE 75; RESP 20; TEMP 98
[2023-07-03 10:01] LABS: BASO % 0.7 % (0-2.0); EOS % 0.8 % (0-4.5); HEMATOCRIT 45.9 % (32.4-45.2); HEMOGLOBIN 15.2 GM/dL (10.7-15.3); LYMPH % 17.8 % (8-40); MCH 31.8 pg (25.7-33.7); MCHC 33.2 g/dl (32.0-36.0); MEAN CELL VOLUME 95.7 fl (80-96); MEAN PLT VOLUME 7.7 fl (7.5-11.1); MONO % 4.6 % (3.8-10.2); NEUT % 76.1 % (42.8-82.8); PLATELET COUNT 332 10^3/uL (134-434); RBC 4.79 M/mm3 (3.60-5.2); RDW 13.1 % (11.6-15.6); WHITE BLOOD COUNT 6.2 K/mm3 (4.0-10.0)
[2023-07-03] MEDS: LIDOCAINE HCL 1%, 10 MG/ML (20ML VIAL) ID ONE (10:04)
[2023-07-03] MEDS: GOSERELIN ACETATE 3.6 MG IMPLANT SYRINGE SQ ONE (10:04)
[2023-07-03 10:23] LABS: POTASSIUM 4.3 mmol/L (3.5-5.1)
[2023-07-03 10:24] LABS: CALCIUM 9.3 mg/dL (8.5-10.1)
[2023-07-03 10:25] LABS: ALBUMIN 3.6 g/dl (3.4-5.0); BLOOD UREA NITROGEN 14.4 mg/dL (7-18); MAGNESIUM 1.9 mg/dL (1.8-2.4)
[2023-07-03 10:28] LABS: CREATININE 0.5 mg/dL (0.55-1.3); PHOSPHOROUS 2.6 mg/dL (2.5-4.9)
[2023-07-03 10:30] LABS: BILIRUBIN,TOTAL 0.6 mg/dL (0.2-1); TOT PROT 7.4 g/dl (6.4-8.2)
[2023-07-04 07:15] LABS: PARATHYROID HORM INTACT 70 pg/mL (15-65)
[2023-07-04 08:19] LABS: CARCINOEMBRYONIC ANTIGEN 2.1 ng/mL (0.0-4.7); FOLLICLE STIMULATING HORMONE 4.8 mIU/mL (.); LUTEINIZING HORMONE < 0.3 mIU/mL (.)
[2023-07-08 15:08] LABS: PARATHYROID RELATED PROTEIN < 2.0 pmol/L (.)
== END 2023-07-03 10:25 | disposition home or self-care (01) ==
LOC: JONCCHEMO 09:23
PROVIDERS: ATTEND Internal Medicine Hematology & Oncology
DX: Z51.11 Encounter for antineoplastic chemotherapy (principal); C50.212 Malignant neoplasm of upper-inner quadrant of left female breast
CPT/HCPCS: 36415; 80053; 82306; 82378; 82397; 82670; 83001; 83002; 83735; 83970; 84100; 84703; 85025; 86300; 96402; J9202

== ENCOUNTER 2023-07-31 10:39 | Day surgery (SDC) | payer OTHER ==
[2023-07-31] MEDS: GOSERELIN ACETATE 3.6 MG IMPLANT SYRINGE SQ ONE (10:54)
[2023-07-31] MEDS: LIDOCAINE HCL 1%, 10 MG/ML (20ML VIAL) ID ONE (10:54)
[2023-07-31 11:00] LABS: BASO % 0.7 % (0-2.0); EOS % 1.2 % (0-4.5); HEMATOCRIT 44.8 % (32.4-45.2); HEMOGLOBIN 15.2 GM/dL (10.7-15.3); LYMPH % 20.6 % (8-40); MCH 32.1 pg (25.7-33.7); MCHC 33.9 g/dl (32.0-36.0); MEAN CELL VOLUME 94.5 fl (80-96); MEAN PLT VOLUME 7.7 fl (7.5-11.1); MONO % 5.9 % (3.8-10.2); NEUT % 71.6 % (42.8-82.8); PLATELET COUNT 305 10^3/uL (134-434); RBC 4.75 M/mm3 (3.60-5.2); WHITE BLOOD COUNT 5.8 K/mm3 (4.0-10.0)
[2023-07-31 11:18] LABS: ALBUMIN 3.8 g/dl (3.4-5.0); BLOOD UREA NITROGEN 13.9 mg/dL (7-18); CALCIUM 9.2 mg/dL (8.5-10.1)
[2023-07-31 11:19] LABS: MAGNESIUM 2.3 mg/dL (1.8-2.4)
[2023-07-31 11:22] LABS: CREATININE 0.4 mg/dL (0.55-1.3)
[2023-07-31 11:23] LABS: BILIRUBIN,TOTAL 0.5 mg/dL (0.2-1); TOT PROT 7.3 g/dl (6.4-8.2)
[2023-07-31 15:49] VITALS: BP 117/73; PULSE 81; RESP 18; TEMP 98.5
[2023-08-01 10:08] LABS: FOLLICLE STIMULATING HORMONE 5.1 mIU/mL (.); LUTEINIZING HORMONE < 0.3 mIU/mL (.)
[2023-08-02 08:09] LABS: CARCINOEMBRYONIC ANTIGEN 2.3 ng/mL (0.0-4.7)
== END 2023-07-31 11:30 | disposition home or self-care (01) ==
LOC: JONCCHEMO 10:39 → J7W 10:39 → JONCCHEMO 11:30
PROVIDERS: ATTEND Internal Medicine Hematology & Oncology
DX: Z51.11 Encounter for antineoplastic chemotherapy (principal); C50.212 Malignant neoplasm of upper-inner quadrant of left female breast
CPT/HCPCS: 36415; 80053; 82306; 82378; 82670; 83001; 83002; 83735; 84703; 85025; 86300; 96402; J9202

== ENCOUNTER 2023-08-28 10:34 | Day surgery (SDC) | payer OTHER ==
[2023-08-28] MEDS: GOSERELIN ACETATE 3.6 MG IMPLANT SYRINGE SQ ONE (10:55)
[2023-08-28] MEDS: LIDOCAINE HCL 1%, 10 MG/ML (20ML VIAL) ID ONE (10:55)
[2023-08-28 11:07] LABS: BASO % 0.9 % (0-2.0); EOS % 1.2 % (0-4.5); HEMATOCRIT 46.9 % (32.4-45.2); HEMOGLOBIN 15.7 GM/dL (10.7-15.3); LYMPH % 23.1 % (8-40); MCH 31.8 pg (25.7-33.7); MCHC 33.5 g/dl (32.0-36.0); MEAN CELL VOLUME 94.8 fl (80-96); MONO % 5.2 % (3.8-10.2); NEUT % 69.6 % (42.8-82.8); PLATELET COUNT 285 10^3/uL (134-434); RBC 4.94 M/mm3 (3.60-5.2); RDW 13.2 % (11.6-15.6); WHITE BLOOD COUNT 5.4 K/mm3 (4.0-10.0)
[2023-08-28 11:25] LABS: POTASSIUM 3.9 mmol/L (3.5-5.1)
[2023-08-28 11:27] LABS: BLOOD UREA NITROGEN 17.1 mg/dL (7-18); CALCIUM 9.2 mg/dL (8.5-10.1)
[2023-08-28 11:28] LABS: ALBUMIN 3.6 g/dl (3.4-5.0); MAGNESIUM 2.1 mg/dL (1.8-2.4)
[2023-08-28 11:31] LABS: CREATININE 0.5 mg/dL (0.55-1.3)
[2023-08-28 11:32] LABS: BILIRUBIN,TOTAL 0.6 mg/dL (0.2-1); TOT PROT 7.1 g/dl (6.4-8.2)
[2023-08-28 14:34] VITALS: BP 103/69; PULSE 68; RESP 18; TEMP 98.3
[2023-08-28] MEDS ORDERED: PORTA CATH FLUSH 10 ML IVPUSH PRN (14:34)
[2023-08-29 08:10] LABS: FOLLICLE STIMULATING HORMONE 5.4 mIU/mL (.); LUTEINIZING HORMONE 0.4 mIU/mL (.)
[2023-09-02 08:10] LABS: CARCINOEMBRYONIC ANTIGEN 2.6 ng/mL (0.0-4.7)
== END 2023-08-28 11:05 | disposition home or self-care (01) ==
LOC: JONCCHEMO 10:34 → J7W 10:35 → JONCCHEMO 11:05
PROVIDERS: ATTEND Internal Medicine Hematology & Oncology
DX: Z51.11 Encounter for antineoplastic chemotherapy (principal); C50.212 Malignant neoplasm of upper-inner quadrant of left female breast
CPT/HCPCS: 36415; 80053; 82306; 82378; 82670; 83001; 83002; 83735; 84703; 85025; 86300; 96401; J9202

== ENCOUNTER 2023-10-30 10:54 | Day surgery (SDC) | payer OTHER ==
[2023-10-30] MEDS: LIDOCAINE HCL 1%, 10 MG/ML (20ML VIAL) ID ONE (11:17)
[2023-10-30] MEDS: GOSERELIN ACETATE 3.6 MG IMPLANT SYRINGE SQ ONE (11:17)
[2023-10-30 11:25] LABS: BASO % 0.4 % (0-2.0); EOS % 0.9 % (0-4.5); HEMATOCRIT 45.5 % (32.4-45.2); HEMOGLOBIN 15.3 GM/dL (10.7-15.3); LYMPH % 25.7 % (8-40); MCH 31.4 pg (25.7-33.7); MCHC 33.6 g/dl (32.0-36.0); MEAN CELL VOLUME 93.2 fl (80-96); MEAN PLT VOLUME 8.1 fl (7.5-11.1); MONO % 6.1 % (3.8-10.2); NEUT % 66.9 % (42.8-82.8); PLATELET COUNT 281 10^3/uL (134-434); RBC 4.89 M/mm3 (3.60-5.2); RDW 13.1 % (11.6-15.6); WHITE BLOOD COUNT 5.9 K/mm3 (4.0-10.0)
[2023-10-30 11:54] LABS: POTASSIUM 4.2 mmol/L (3.5-5.1)
[2023-10-30 11:57] LABS: CALCIUM 10.1 mg/dL (8.5-10.1)
[2023-10-30 11:58] LABS: ALBUMIN 3.9 g/dl (3.4-5.0); BLOOD UREA NITROGEN 17.4 mg/dL (7-18)
[2023-10-30 12:01] LABS: CREATININE 0.4 mg/dL (0.55-1.3)
[2023-10-30 12:02] LABS: BILIRUBIN,TOTAL 0.6 mg/dL (0.2-1); TOT PROT 7.6 g/dl (6.4-8.2)
[2023-10-30 12:04] VITALS: BP 120/84; PULSE 69; RESP 18; TEMP 97.9
[2023-10-31 23:06] LABS: CARCINOEMBRYONIC ANTIGEN 2.4 ng/mL (0.0-4.7); FOLLICLE STIMULATING HORMONE 4.7 mIU/mL (.); LUTEINIZING HORMONE < 0.3 mIU/mL (.)
== END 2023-10-30 11:35 | disposition home or self-care (01) ==
LOC: JONCCHEMO 10:54 → J7W 10:54 → JONCCHEMO 11:35
PROVIDERS: ATTEND Internal Medicine Hematology & Oncology
DX: Z51.11 Encounter for antineoplastic chemotherapy (principal); C50.212 Malignant neoplasm of upper-inner quadrant of left female breast
CPT/HCPCS: 36415; 80053; 82306; 82378; 82670; 83001; 83002; 83735; 84703; 85025; 86300; 96402; J9202

== ENCOUNTER 2023-11-27 10:33 | Day surgery (SDC) | payer OTHER ==
[2023-11-27 11:02] LABS: BASO % 0.7 % (0-2.0); EOS % 1.8 % (0-4.5); HEMATOCRIT 45.1 % (32.4-45.2); HEMOGLOBIN 15.1 GM/dL (10.7-15.3); LYMPH % 25.9 % (8-40); MCH 31.5 pg (25.7-33.7); MCHC 33.6 g/dl (32.0-36.0); MEAN CELL VOLUME 93.8 fl (80-96); NEUT % 65.6 % (42.8-82.8); PLATELET COUNT 285 10^3/uL (134-434); RBC 4.81 M/mm3 (3.60-5.2); RDW 13.1 % (11.6-15.6); WHITE BLOOD COUNT 4.9 K/mm3 (4.0-10.0)
[2023-11-27] MEDS: ZOLEDRONIC ACID/MAN/WATER 5 MG/100 ML INFUS..BTL IVPB ONE (11:09)
[2023-11-27] MEDS: GOSERELIN ACETATE 3.6 MG IMPLANT SYRINGE SQ ONE (11:09)
[2023-11-27] MEDS: LIDOCAINE HCL 1%, 10 MG/ML (20ML VIAL) ID ONE (11:10)
[2023-11-27 11:22] LABS: CHLORIDE 109 mmol/L (98-107); SODIUM 142 mmol/L (136-145)
[2023-11-27 11:24] LABS: ALBUMIN 3.8 g/dl (3.4-5.0); CALCIUM 9.8 mg/dL (8.5-10.1)
[2023-11-27 11:25] LABS: ANION GAP 6 mmol/L (4-13); BLOOD UREA NITROGEN 20.4 mg/dL (7-18); CO2 27 mmol/L (21-32); GLUCOSE,RANDOM 87 mg/dL (74-106); MAGNESIUM 2.3 mg/dL (1.8-2.4)
[2023-11-27 11:28] LABS: CREATININE 0.5 mg/dL (0.55-1.3); SGOT/AST 21 U/L (15-37); SGPT/ALT 27 U/L (13-61)
[2023-11-27 11:29] LABS: BILIRUBIN,TOTAL 0.5 mg/dL (0.2-1); TOT PROT 7.2 g/dl (6.4-8.2)
[2023-11-27 11:30] LABS: ALK PHOS 97 U/L (45-117)
[2023-11-27 17:09] VITALS: BP 124/70; PULSE 65; RESP 20; TEMP 98
[2023-11-28 10:12] LABS: CARCINOEMBRYONIC ANTIGEN 2.3 ng/mL (0.0-4.7); FOLLICLE STIMULATING HORMONE 5.3 mIU/mL (.); LUTEINIZING HORMONE < 0.3 mIU/mL (.)
== END 2023-11-27 11:30 | disposition home or self-care (01) ==
LOC: JONCCHEMO 10:33 → J7W 10:34 → JONCCHEMO 11:30
PROVIDERS: ATTEND Internal Medicine Hematology & Oncology
PROC: 3E033GC Introduction of Other Therapeutic Substance into Peripheral Vein, Percutaneous Approach (ICD-10-PCS; principal; 2023-11-27)
PROC: 3E01305 Introduction of Other Antineoplastic into Subcutaneous Tissue, Percutaneous Approach (ICD-10-PCS; 2023-11-27)
DX: C50.919 Malignant neoplasm of unspecified site of unspecified female breast (principal)
CPT/HCPCS: 36415; 80053; 82306; 82378; 82670; 83001; 83002; 83735; 84703; 85025; 86300; 96365; 96402; J3489; J9202

== ENCOUNTER 2023-12-25 09:37 | Day surgery (SDC) | payer OTHER ==
[2023-12-25] MEDS: GOSERELIN ACETATE 3.6 MG IMPLANT SYRINGE SQ ONE (09:55)
[2023-12-25] MEDS: LIDOCAINE HCL 1%, 10 MG/ML (20ML VIAL) ID ONE (09:57)
[2023-12-25 10:28] LABS: BASO % 0.8 % (0-2.0); EOS % 0.8 % (0-4.5); HEMATOCRIT 46.3 % (32.4-45.2); HEMOGLOBIN 15.5 GM/dL (10.7-15.3); LYMPH % 25.3 % (8-40); MCH 31.4 pg (25.7-33.7); MCHC 33.5 g/dl (32.0-36.0); MEAN CELL VOLUME 93.6 fl (80-96); MEAN PLT VOLUME 8.3 fl (7.5-11.1); MONO % 7.2 % (3.8-10.2); NEUT % 65.9 % (42.8-82.8); PLATELET COUNT 293 10^3/uL (134-434); RBC 4.95 M/mm3 (3.60-5.2); RDW 13.4 % (11.6-15.6); WHITE BLOOD COUNT 5.4 K/mm3 (4.0-10.0)
[2023-12-25 10:47] LABS: CHLORIDE 108 mmol/L (98-107); POTASSIUM 3.8 mmol/L (3.5-5.1); SODIUM 142 mmol/L (136-145)
[2023-12-25 10:49] LABS: CALCIUM 10.2 mg/dL (8.5-10.1)
[2023-12-25 10:50] LABS: GLUCOSE,RANDOM 72 mg/dL (74-106)
[2023-12-25 10:51] LABS: ANION GAP 7 mmol/L (4-13); BLOOD UREA NITROGEN 15.3 mg/dL (7-18); CO2 27 mmol/L (21-32)
[2023-12-25 10:53] LABS: SGOT/AST 24 U/L (15-37)
[2023-12-25 10:54] LABS: CREATININE 0.5 mg/dL (0.55-1.3); SGPT/ALT 29 U/L (13-61); TOT PROT 7.6 g/dl (6.4-8.2)
[2023-12-25 10:56] LABS: ALK PHOS 99 U/L (45-117); BILIRUBIN,TOTAL 1.4 mg/dL (0.2-1)
[2023-12-25 17:45] VITALS: BP 128/83; PULSE 81; RESP 18; TEMP 98.8
[2023-12-26 08:11] LABS: CARCINOEMBRYONIC ANTIGEN 1.7 ng/mL (0.0-4.7); FOLLICLE STIMULATING HORMONE 5.9 mIU/mL (.); LUTEINIZING HORMONE < 0.3 mIU/mL (.)
== END 2023-12-25 11:00 | disposition home or self-care (01) ==
LOC: JONCCHEMO 09:37 → J7W 09:38 → JONCCHEMO 11:00
PROVIDERS: ATTEND Internal Medicine Hematology & Oncology
DX: Z51.11 Encounter for antineoplastic chemotherapy (principal); C50.919 Malignant neoplasm of unspecified site of unspecified female breast
CPT/HCPCS: 36415; 80053; 82306; 82378; 82670; 83001; 83002; 83010; 83735; 84703; 85025; 86300; 96402; J9202

== ENCOUNTER 2024-01-22 10:46 | Day surgery (SDC) | payer OTHER ==
[2024-01-22] MEDS: GOSERELIN ACETATE 3.6 MG IMPLANT SYRINGE SQ ONE (11:15)
[2024-01-22] MEDS: LIDOCAINE HCL 1%, 10 MG/ML (20ML VIAL) ID ONE (11:16)
[2024-01-22 11:28] LABS: BASO % 0.7 % (0-2.0); EOS % 0.9 % (0-4.5); HEMATOCRIT 44.3 % (32.4-45.2); LYMPH % 27.2 % (8-40); MCH 31.8 pg (25.7-33.7); MEAN CELL VOLUME 93.6 fl (80-96); MEAN PLT VOLUME 7.8 fl (7.5-11.1); MONO % 6.3 % (3.8-10.2); NEUT % 64.9 % (42.8-82.8); PLATELET COUNT 278 10^3/uL (134-434); RBC 4.73 M/mm3 (3.60-5.2); RDW 12.9 % (11.6-15.6); WHITE BLOOD COUNT 5.2 K/mm3 (4.0-10.0)
[2024-01-22 11:55] LABS: CHLORIDE 112 mmol/L (98-107); POTASSIUM 4.3 mmol/L (3.5-5.1); SODIUM 144 mmol/L (136-145)
[2024-01-22 11:59] LABS: CALCIUM 10.1 mg/dL (8.5-10.1)
[2024-01-22 12:00] LABS: ALBUMIN 3.9 g/dl (3.4-5.0); ANION GAP 7 mmol/L (4-13); BLOOD UREA NITROGEN 21.4 mg/dL (7-18); CO2 26 mmol/L (21-32); GLUCOSE,RANDOM 89 mg/dL (74-106); MAGNESIUM 2.3 mg/dL (1.8-2.4)
[2024-01-22 12:03] LABS: CREATININE 0.6 mg/dL (0.55-1.3); SGOT/AST 20 U/L (15-37); SGPT/ALT 30 U/L (13-61)
[2024-01-22 12:04] LABS: BILIRUBIN,TOTAL 0.5 mg/dL (0.2-1); TOT PROT 7.1 g/dl (6.4-8.2)
[2024-01-22 12:05] LABS: ALK PHOS 83 U/L (45-117)
[2024-01-22 18:34] VITALS: BP 122/72; PULSE 75; RESP 18; TEMP 98.1
[2024-01-24 08:10] LABS: CARCINOEMBRYONIC ANTIGEN 2.4 ng/mL (0.0-4.7)
[2024-01-24 10:08] LABS: FOLLICLE STIMULATING HORMONE 5.3 mIU/mL (.); LUTEINIZING HORMONE < 0.3 mIU/mL (.)
== END 2024-01-22 11:35 | disposition home or self-care (01) ==
LOC: JONCCHEMO 10:46 → J7W 10:47 → JONCCHEMO 11:35
PROVIDERS: ATTEND Internal Medicine Hematology & Oncology
DX: Z51.11 Encounter for antineoplastic chemotherapy (principal); C50.919 Malignant neoplasm of unspecified site of unspecified female breast
CPT/HCPCS: 36415; 80053; 82306; 82378; 82670; 83001; 83002; 83735; 84703; 85025; 86300; 96402; J9202

== ENCOUNTER 2024-02-19 11:02 | Day surgery (SDC) | payer OTHER ==
[2024-02-19] MEDS: LIDOCAINE HCL 1%, 10 MG/ML (20ML VIAL) ID ONE (11:24)
[2024-02-19] MEDS: GOSERELIN ACETATE 3.6 MG IMPLANT SYRINGE SQ ONE (11:24)
[2024-02-19 11:29] LABS: BASO % 0.4 % (0-2.0); EOS % 2.1 % (0-4.5); HEMATOCRIT 44.9 % (32.4-45.2); HEMOGLOBIN 14.6 GM/dL (10.7-15.3); MCH 31.1 pg (25.7-33.7); MCHC 32.5 g/dl (32.0-36.0); MEAN CELL VOLUME 95.8 fl (80-96); MONO % 5.8 % (3.8-10.2); NEUT % 63.7 % (42.8-82.8); PLATELET COUNT 293 10^3/uL (134-434); RBC 4.68 M/mm3 (3.60-5.2); RDW 12.8 % (11.6-15.6); WHITE BLOOD COUNT 5.3 K/mm3 (4.0-10.0)
[2024-02-19 11:58] LABS: CHLORIDE 110 mmol/L (98-107); POTASSIUM 4.3 mmol/L (3.5-5.1); SODIUM 141 mmol/L (136-145)
[2024-02-19 12:02] LABS: ALBUMIN 3.7 g/dl (3.4-5.0); ANION GAP 2 mmol/L (4-13); BLOOD UREA NITROGEN 14.3 mg/dL (7-18); CALCIUM 9.5 mg/dL (8.5-10.1); CO2 29 mmol/L (21-32); GLUCOSE,RANDOM 95 mg/dL (74-106); MAGNESIUM 2.1 mg/dL (1.8-2.4)
[2024-02-19 12:05] LABS: CREATININE 0.5 mg/dL (0.55-1.3); SGOT/AST 23 U/L (15-37)
[2024-02-19 12:06] LABS: ALK PHOS 87 U/L (45-117)
[2024-02-19 12:07] LABS: BILIRUBIN,TOTAL 0.5 mg/dL (0.2-1); TOT PROT 6.8 g/dl (6.4-8.2)
[2024-02-19 12:09] LABS: SGPT/ALT 34 U/L (13-61)
[2024-02-19 12:57] VITALS: BP 123/68; PULSE 70; RESP 18; TEMP 98.2
[2024-02-20 08:11] LABS: FOLLICLE STIMULATING HORMONE 4.8 mIU/mL (.); LUTEINIZING HORMONE < 0.3 mIU/mL (.)
== END 2024-02-19 11:50 | disposition home or self-care (01) ==
LOC: JONCCHEMO 11:02 → J7W 11:02 → JONCCHEMO 11:50
PROVIDERS: ATTEND Internal Medicine Hematology & Oncology
DX: Z51.11 Encounter for antineoplastic chemotherapy (principal); C50.919 Malignant neoplasm of unspecified site of unspecified female breast
CPT/HCPCS: 36415; 80053; 82306; 82378; 83001; 83002; 83735; 84703; 85025; 86300; 96402; J9202

== ENCOUNTER 2024-03-18 11:47 | Day surgery (SDC) | payer OTHER ==
[2024-03-18] MEDS: GOSERELIN ACETATE 3.6 MG IMPLANT SYRINGE SQ ONE (11:51)
[2024-03-18] MEDS: LIDOCAINE HCL 1%, 10 MG/ML (20ML VIAL) ID ONE (11:52)
[2024-03-18 12:16] VITALS: BP 117/87; PULSE 73; RESP 18; TEMP 98.3
[2024-03-18 13:02] LABS: HEMATOCRIT 45.1 % (32.4-45.2); HEMOGLOBIN 15.3 GM/dL (10.7-15.3); MCH 31.7 pg (25.7-33.7); MEAN CELL VOLUME 93.1 fl (80-96); MEAN PLT VOLUME 8.4 fl (7.5-11.1); PLATELET COUNT 270 10^3/uL (134-434); RBC 4.84 M/mm3 (3.60-5.2); RDW 12.9 % (11.6-15.6); WHITE BLOOD COUNT 6.2 K/mm3 (4.0-10.0)
[2024-03-18 13:06] LABS: POTASSIUM 3.9 mmol/L (3.5-5.1)
[2024-03-18 13:24] LABS: BLOOD UREA NITROGEN 16.3 mg/dL (7-18)
[2024-03-18 13:25] LABS: CALCIUM 10.2 mg/dL (8.5-10.1)
[2024-03-18 13:26] LABS: MAGNESIUM 2.3 mg/dL (1.8-2.4)
[2024-03-18 13:29] LABS: CREATININE 0.5 mg/dL (0.55-1.3)
[2024-03-18 13:31] LABS: BILIRUBIN,TOTAL 0.7 mg/dL (0.2-1); TOT PROT 7.1 g/dl (6.4-8.2)
[2024-03-18 15:11] LABS: BASO % 0.5 % (0-2.0); EOS % 1.1 % (0-4.5); LYMPH % 23.7 % (8-40); MONO % 5.7 % (3.8-10.2)
[2024-03-19 08:11] LABS: CARCINOEMBRYONIC ANTIGEN 2.5 ng/mL (0.0-4.7); FOLLICLE STIMULATING HORMONE 5.3 mIU/mL (.); LUTEINIZING HORMONE < 0.3 mIU/mL (.)
== END 2024-03-18 12:10 | disposition home or self-care (01) ==
LOC: JONCCHEMO 11:47 → J7W 11:49 → JONCCHEMO 12:10
PROVIDERS: ATTEND Internal Medicine Hematology & Oncology
DX: Z51.11 Encounter for antineoplastic chemotherapy (principal); C50.911 Malignant neoplasm of unspecified site of right female breast
CPT/HCPCS: 36415; 80053; 82306; 82378; 82670; 83001; 83002; 83735; 84703; 85025; 86300; 96402; J9202

== ENCOUNTER 2024-04-15 11:36 | Day surgery (SDC) | payer OTHER ==
[2024-04-15] MEDS: GOSERELIN ACETATE 3.6 MG IMPLANT SYRINGE SQ ONE (11:53)
[2024-04-15] MEDS: LIDOCAINE HCL 1%, 10 MG/ML (20ML VIAL) ID ONE (11:53)
[2024-04-15 12:33] LABS: BASO % 0.8 % (0-2.0); EOS % 1.3 % (0-4.5); HEMATOCRIT 45.9 % (32.4-45.2); HEMOGLOBIN 15.4 GM/dL (10.7-15.3); LYMPH % 23.7 % (8-40); MCH 31.5 pg (25.7-33.7); MCHC 33.6 g/dl (32.0-36.0); MEAN CELL VOLUME 93.7 fl (80-96); MEAN PLT VOLUME 8.6 fl (7.5-11.1); MONO % 6.4 % (3.8-10.2); NEUT % 67.8 % (42.8-82.8); PLATELET COUNT 278 10^3/uL (134-434); RDW 13.3 % (11.6-15.6); WHITE BLOOD COUNT 5.7 K/mm3 (4.0-10.0)
[2024-04-15 12:48] LABS: CHLORIDE 108 mmol/L (98-107); POTASSIUM 3.9 mmol/L (3.5-5.1); SODIUM 141 mmol/L (136-145)
[2024-04-15 12:50] LABS: ANION GAP 5 mmol/L (4-13); CO2 28 mmol/L (21-32); GLUCOSE,RANDOM 84 mg/dL (74-106)
[2024-04-15 12:51] LABS: BLOOD UREA NITROGEN 17.9 mg/dL (7-18); MAGNESIUM 2.2 mg/dL (1.8-2.4)
[2024-04-15 12:54] LABS: CREATININE 0.5 mg/dL (0.55-1.3); SGOT/AST 18 U/L (15-37); SGPT/ALT 31 U/L (13-61)
[2024-04-15 12:55] LABS: BILIRUBIN,TOTAL 0.6 mg/dL (0.2-1); TOT PROT 7.4 g/dl (6.4-8.2)
[2024-04-15 12:56] LABS: ALK PHOS 91 U/L (45-117)
[2024-04-15 13:14] LABS: ALBUMIN 4.1 g/dl (3.4-5.0)
[2024-04-15 13:16] LABS: BILIRUBIN,DIRECT 0.2 mg/dL (0.0-0.2)
[2024-04-15 13:19] LABS: BILIRUBIN,TOTAL 0.6 mg/dL (0.2-1); TOT PROT 7.5 g/dl (6.4-8.2)
[2024-04-15 17:04] VITALS: BP 107/68; PULSE 72; RESP 20; TEMP 98
[2024-04-17 08:09] LABS: LUTEINIZING HORMONE < 0.3 mIU/mL (.)
== END 2024-04-15 12:05 | disposition home or self-care (01) ==
LOC: JONCCHEMO 11:36 → J7W 11:38 → JONCCHEMO 12:05
PROVIDERS: ATTEND Internal Medicine Hematology & Oncology
DX: Z51.11 Encounter for antineoplastic chemotherapy (principal); C50.911 Malignant neoplasm of unspecified site of right female breast
CPT/HCPCS: 36415; 80053; 80076; 82306; 82378; 82607; 82670; 82746; 83001; 83002; 83036; 83735; 84439; 84703; 85025; 86300; 96402; J9202

== ENCOUNTER 2024-05-13 10:25 | Day surgery (SDC) | payer OTHER ==
[2024-05-13] MEDS: LIDOCAINE HCL 1%, 10 MG/ML (20ML VIAL) ID ONE (10:35)
[2024-05-13] MEDS: GOSERELIN ACETATE 3.6 MG IMPLANT SYRINGE SQ ONE (10:36)
[2024-05-13 11:18] LABS: BASO % 0.7 % (0-2.0); EOS % 1.3 % (0-4.5); HEMATOCRIT 45.2 % (32.4-45.2); HEMOGLOBIN 15.1 GM/dL (10.7-15.3); LYMPH % 24.6 % (8-40); MCH 31.6 pg (25.7-33.7); MCHC 33.5 g/dl (32.0-36.0); MEAN CELL VOLUME 94.4 fl (80-96); MEAN PLT VOLUME 8.4 fl (7.5-11.1); MONO % 6.5 % (3.8-10.2); NEUT % 66.9 % (42.8-82.8); PLATELET COUNT 276 10^3/uL (134-434); RBC 4.78 M/mm3 (3.60-5.2); RDW 13.2 % (11.6-15.6); WHITE BLOOD COUNT 4.8 K/mm3 (4.0-10.0)
[2024-05-13 11:52] LABS: CHLORIDE 108 mmol/L (98-107); POTASSIUM 3.9 mmol/L (3.5-5.1); SODIUM 140 mmol/L (136-145)
[2024-05-13 11:55] LABS: CALCIUM 9.9 mg/dL (8.5-10.1)
[2024-05-13 11:56] LABS: ALBUMIN 3.9 g/dl (3.4-5.0); ANION GAP 4 mmol/L (4-13); BLOOD UREA NITROGEN 14.9 mg/dL (7-18); CO2 27 mmol/L (21-32); GLUCOSE,RANDOM 77 mg/dL (74-106); MAGNESIUM 2.2 mg/dL (1.8-2.4)
[2024-05-13 11:59] LABS: CREATININE 0.5 mg/dL (0.55-1.3); SGOT/AST 18 U/L (15-37); SGPT/ALT 29 U/L (13-61)
[2024-05-13 12:01] LABS: BILIRUBIN,TOTAL 0.8 mg/dL (0.2-1); TOT PROT 7.1 g/dl (6.4-8.2)
[2024-05-13 12:02] LABS: ALK PHOS 83 U/L (45-117)
[2024-05-13 15:05] VITALS: BP 116/75; PULSE 68; RESP 18; TEMP 98.5
== END 2024-05-13 11:00 | disposition home or self-care (01) ==
LOC: JONCCHEMO 10:25 → J7W 10:29 → JONCCHEMO 11:00
PROVIDERS: ATTEND Internal Medicine Hematology & Oncology
DX: Z51.11 Encounter for antineoplastic chemotherapy (principal); C50.212 Malignant neoplasm of upper-inner quadrant of left female breast; C50.211 Malignant neoplasm of upper-inner quadrant of right female breast; Z17.0 Estrogen receptor positive status [ER+]
CPT/HCPCS: 36415; 80053; 82306; 82378; 82670; 83735; 84703; 85025; 86300; 96402; J9202

== ENCOUNTER 2024-07-08 10:38 | Day surgery (SDC) | payer OTHER ==
[2024-07-08] MEDS: GOSERELIN ACETATE 3.6 MG IMPLANT SYRINGE SQ ONE (11:04)
[2024-07-08] MEDS: LIDOCAINE HCL 1%, 10 MG/ML (20ML VIAL) ID ONE (11:05)
[2024-07-08 11:36] LABS: BASO % 0.9 % (0-2.0); EOS % 1.4 % (0-4.5); HEMOGLOBIN 14.9 GM/dL (10.7-15.3); LYMPH % 27.9 % (8-40); MCH 31.1 pg (25.7-33.7); MCHC 32.4 g/dl (32.0-36.0); MEAN CELL VOLUME 95.8 fl (80-96); MEAN PLT VOLUME 8.5 fl (7.5-11.1); NEUT % 63.8 % (42.8-82.8); PLATELET COUNT 273 10^3/uL (134-434); RDW 13.6 % (11.6-15.6); WHITE BLOOD COUNT 5.7 K/mm3 (4.0-10.0)
[2024-07-08 12:01] LABS: CHLORIDE 110 mmol/L (98-107); POTASSIUM 4.3 mmol/L (3.5-5.1); SODIUM 143 mmol/L (136-145)
[2024-07-08 12:03] LABS: CALCIUM 9.8 mg/dL (8.5-10.1)
[2024-07-08 12:04] LABS: ANION GAP 4 mmol/L (4-13); CO2 28 mmol/L (21-32); GLUCOSE,RANDOM 90 mg/dL (74-106); MAGNESIUM 2.4 mg/dL (1.8-2.4)
[2024-07-08 12:07] LABS: CREATININE 0.5 mg/dL (0.55-1.3); SGOT/AST 18 U/L (15-37); SGPT/ALT 29 U/L (13-61)
[2024-07-08 12:09] LABS: BILIRUBIN,TOTAL 0.6 mg/dL (0.2-1); TOT PROT 7.4 g/dl (6.4-8.2)
[2024-07-08 12:10] LABS: ALK PHOS 100 U/L (45-117)
[2024-07-08 17:13] VITALS: BP 129/79; PULSE 75; RESP 18; TEMP 97.9
[2024-07-09 15:07] LABS: CARCINOEMBRYONIC ANTIGEN 2.3 ng/mL (0.0-4.7)
== END 2024-07-08 11:15 | disposition home or self-care (01) ==
LOC: JONCCHEMO 10:38
PROVIDERS: ATTEND Internal Medicine Hematology & Oncology
DX: Z51.11 Encounter for antineoplastic chemotherapy (principal); C50.212 Malignant neoplasm of upper-inner quadrant of left female breast; Z17.0 Estrogen receptor positive status [ER+]
CPT/HCPCS: 36415; 80053; 82306; 82378; 82533; 82670; 83735; 84703; 85025; 86300; 96402; J9202

== ENCOUNTER 2024-08-05 09:35 | Day surgery (SDC) | payer OTHER ==
[2024-08-05] MEDS: LIDOCAINE HCL 1%, 10 MG/ML (20ML VIAL) ID ONE (09:43)
[2024-08-05] MEDS: GOSERELIN ACETATE 3.6 MG IMPLANT SYRINGE SQ ONE (09:43)
[2024-08-05 09:51] LABS: ABSOLUTE IMMATURE GRANULOCYTES 0.01 x10^3/uL (0.0-0.031); BASOPHILS # 0.03 x10^3/uL (0.01-0.08); EOSINOPHIL % 1.8 % (0.7-5.8); EOSINOPHILS # 0.08 x10^3/uL (0.04-0.36); HEMATOCRIT 47.6 % (34.1-44.9); HEMOGLOBIN 14.9 g/dL (11.2-15.7); MCHC 31.3 g/dl (32.2-35.5); MEAN CELL VOLUME 97.7 fl (79.4-94.8); MONOCYTE # 0.32 x10^3/uL (0.24-0.86); MONOCYTE % 7.1 % (4.7-12.5); PLATELET COUNT 264 x10^3/uL (182-369)
[2024-08-05 10:08] LABS: CHLORIDE 110 mmol/L (98-107); POTASSIUM 3.8 mmol/L (3.5-5.1); SODIUM 142 mmol/L (136-145)
[2024-08-05 10:10] LABS: ALBUMIN 3.7 g/dl (3.4-5.0); ANION GAP 4 mmol/L (4-13); BLOOD UREA NITROGEN 22.8 mg/dL (7-18); CALCIUM 9.9 mg/dL (8.5-10.1); CO2 28 mmol/L (21-32); MAGNESIUM 2.1 mg/dL (1.8-2.4)
[2024-08-05 10:11] LABS: GLUCOSE,RANDOM 77 mg/dL (74-106)
[2024-08-05 10:14] LABS: CREATININE 0.5 mg/dL (0.55-1.3); SGOT/AST 18 U/L (15-37); SGPT/ALT 27 U/L (13-61)
[2024-08-05 10:15] LABS: BILIRUBIN,TOTAL 0.8 mg/dL (0.2-1); TOT PROT 6.6 g/dl (6.4-8.2)
[2024-08-05 10:16] LABS: ALK PHOS 87 U/L (45-117)
[2024-08-05 16:04] VITALS: BP 114/70; PULSE 75; RESP 18; TEMP 98.1
[2024-08-07 08:07] LABS: CARCINOEMBRYONIC ANTIGEN 2.4 ng/mL (0.0-4.7)
== END 2024-08-05 10:15 | disposition home or self-care (01) ==
LOC: JONCCHEMO 09:35 → J7W 09:38 → JONCCHEMO 10:15
PROVIDERS: ATTEND Internal Medicine Hematology & Oncology
DX: Z51.11 Encounter for antineoplastic chemotherapy (principal); C50.919 Malignant neoplasm of unspecified site of unspecified female breast
CPT/HCPCS: 36415; 80053; 82306; 82378; 82533; 82670; 83735; 84703; 85025; 86300; 96402; J9202

== ENCOUNTER 2024-09-02 10:38 | Day surgery (SDC) | payer OTHER ==
[2024-09-02] MEDS: GOSERELIN ACETATE 3.6 MG IMPLANT SYRINGE SQ ONE (11:00)
[2024-09-02] MEDS: LIDOCAINE HCL 1%, 10 MG/ML (20ML VIAL) ID ONE (11:00)
[2024-09-02 11:21] LABS: ABSOLUTE IMMATURE GRANULOCYTES 0.01 x10^3/uL (0.0-0.031); BASOPHILS # 0.03 x10^3/uL (0.01-0.08); EOSINOPHIL % 1.4 % (0.7-5.8); EOSINOPHILS # 0.08 x10^3/uL (0.04-0.36); HEMATOCRIT 47.4 % (34.1-44.9); HEMOGLOBIN 15.1 g/dL (11.2-15.7); MCHC 31.9 g/dl (32.2-35.5); MEAN CELL VOLUME 96.7 fl (79.4-94.8); MONOCYTE # 0.36 x10^3/uL (0.24-0.86); MONOCYTE % 6.5 % (4.7-12.5); PLATELET COUNT 278 x10^3/uL (182-369); RDW 12.1 % (12.3-16.6)
[2024-09-02 11:55] LABS: CHLORIDE 104 mmol/L (98-107); POTASSIUM 4.1 mmol/L (3.5-5.1); SODIUM 149 mmol/L (136-145)
[2024-09-02 11:58] LABS: ALBUMIN 4.1 g/dl (3.4-5.0); ANION GAP 18 mmol/L (4-13); BLOOD UREA NITROGEN 17.7 mg/dL (7-18); CALCIUM 10.1 mg/dL (8.5-10.1); CO2 26 mmol/L (21-32); GLUCOSE,RANDOM 87 mg/dL (74-106)
[2024-09-02 12:01] LABS: CREATININE 0.4 mg/dL (0.55-1.3); SGOT/AST 25 U/L (15-37); SGPT/ALT 36 U/L (13-61)
[2024-09-02 12:03] LABS: TOT PROT 7.5 g/dl (6.4-8.2)
[2024-09-02 12:04] LABS: ALK PHOS 103 U/L (45-117)
[2024-09-02 16:01] VITALS: BP 116/77; PULSE 68; RESP 20; TEMP 98.3
[2024-09-03 12:08] LABS: CARCINOEMBRYONIC ANTIGEN 2.4 ng/mL (0.0-4.7)
== END 2024-09-02 11:20 | disposition home or self-care (01) ==
LOC: JONCCHEMO 10:38 → J7W 10:39 → JONCCHEMO 11:20
PROVIDERS: ATTEND Internal Medicine Hematology & Oncology
DX: Z51.11 Encounter for antineoplastic chemotherapy (principal); C50.212 Malignant neoplasm of upper-inner quadrant of left female breast; Z17.0 Estrogen receptor positive status [ER+]
CPT/HCPCS: 36415; 80053; 82306; 82378; 82533; 82670; 83735; 84703; 85025; 86300; 96402; J9202

== ENCOUNTER → 2024-10-06 | Day surgery (SDC) | payer OTHER | END | disposition home or self-care (01) | LOC: JRADIR 09:49 | PROVIDERS: ATTEND Internal Medicine Endocrinology, Diabetes & Metabolism | PROC: 0G9G3ZX Drainage of Left Thyroid Gland Lobe, Percutaneous Approach, Diagnostic (ICD-10-PCS; principal; 2024-10-06) | DX: E04.1 Nontoxic single thyroid nodule (principal) | CPT/HCPCS: 76942; 88173; 88305-TC ==

== ENCOUNTER 2024-11-25 10:27 | Day surgery (SDC) | payer OTHER ==
[2024-11-25] MEDS: LIDOCAINE HCL 1%, 10 MG/ML (20ML VIAL) ID ONE (11:10)
[2024-11-25] MEDS: GOSERELIN ACETATE 3.6 MG IMPLANT SYRINGE SQ ONE (11:10)
[2024-11-25 11:17] LABS: ABSOLUTE IMMATURE GRANULOCYTES 0.00 x10^3/uL (0.0-0.031); BASOPHILS # 0.03 x10^3/uL (0.01-0.08); EOSINOPHIL % 1.4 % (0.7-5.8); EOSINOPHILS # 0.07 x10^3/uL (0.04-0.36); MCHC 31.5 g/dl (32.2-35.5); MEAN CELL VOLUME 98.2 fl (79.4-94.8); MEAN PLT VOLUME 10.2 fl (9.4-12.3); MONOCYTE # 0.37 x10^3/uL (0.24-0.86); MONOCYTE % 7.2 % (4.7-12.5); RDW 12.0 % (12.3-16.6)
[2024-11-25 12:01] LABS: CO2 30 mmol/L (21-32); GLUCOSE,RANDOM 86 mg/dL (74-106)
[2024-11-25 12:04] LABS: CREATININE 0.5 mg/dL (0.55-1.3); SGOT/AST 21 U/L (15-37); SGPT/ALT 37 U/L (13-61)
[2024-11-25 12:05] LABS: TOT PROT 7.4 g/dl (6.4-8.2)
[2024-11-25 12:07] LABS: ALK PHOS 96 U/L (45-117)
[2024-11-25 16:14] VITALS: BP 116/70; PULSE 63; RESP 18; TEMP 98.5
[2024-11-26 11:08] LABS: LUTEINIZING HORMONE < 0.3 mIU/mL (.)
== END 2024-11-25 11:20 | disposition home or self-care (01) ==
LOC: JONCCHEMO 10:27 → J7W 10:28 → JONCCHEMO 11:20
PROVIDERS: ATTEND Internal Medicine Hematology & Oncology
DX: Z51.11 Encounter for antineoplastic chemotherapy (principal); C50.212 Malignant neoplasm of upper-inner quadrant of left female breast; C50.211 Malignant neoplasm of upper-inner quadrant of right female breast; Z17.0 Estrogen receptor positive status [ER+]
CPT/HCPCS: 36415; 80053; 82306; 82378; 82670; 83001; 83002; 83735; 84703; 85025; 86300; 96402; J9202

== ENCOUNTER 2025-01-20 09:05 | Day surgery (SDC) | payer OTHER ==
[2025-01-20] MEDS: GOSERELIN ACETATE 3.6 MG IMPLANT SYRINGE SQ ONE (09:57)
[2025-01-20] MEDS: LIDOCAINE HCL 1%, 10 MG/ML (20ML VIAL) ID ONE (09:57)
[2025-01-20 09:59] LABS: ABSOLUTE IMMATURE GRANULOCYTES 0.01 x10^3/uL (0.0-0.031); BASOPHILS # 0.03 x10^3/uL (0.01-0.08); EOSINOPHIL % 1.6 % (0.7-5.8); EOSINOPHILS # 0.08 x10^3/uL (0.04-0.36); MCHC 31.5 g/dl (32.2-35.5); MEAN CELL VOLUME 98.0 fl (79.4-94.8); MEAN PLT VOLUME 10.3 fl (9.4-12.3); MONOCYTE # 0.36 x10^3/uL (0.24-0.86); MONOCYTE % 7.2 % (4.7-12.5); RDW 11.9 % (12.3-16.6)
[2025-01-20 10:42] LABS: GLUCOSE,RANDOM 87 mg/dL (74-106); TOT PROT 7.2 g/dl (6.4-8.2)
[2025-01-20 10:43] LABS: CO2 24 mmol/L (21-32)
[2025-01-20 10:45] LABS: ALK PHOS 89 U/L (40-150)
[2025-01-20 10:47] LABS: SGOT/AST 20 U/L (5-34); SGPT/ALT 23 U/L (0-55)
[2025-01-20 10:48] LABS: CREATININE 0.46 mg/dL (0.55-1.3)
[2025-01-20] MEDS: ZOLEDRONIC ACID/MAN/WATER 5 MG/100 ML INFUS..BTL IVPB ONE (10:50)
[2025-01-20 14:56] VITALS: TEMP 98
[2025-01-20 14:57] VITALS: BP 138/75; PULSE 71; RESP 18
[2025-01-21 13:06] LABS: LUTEINIZING HORMONE < 0.3 mIU/mL (.)
== END 2025-01-20 11:30 | disposition home or self-care (01) ==
LOC: JONCCHEMO 09:05 → J7W 09:08 → JONCCHEMO 11:30
PROVIDERS: ATTEND Internal Medicine Hematology & Oncology
PROC: 3E033GC Introduction of Other Therapeutic Substance into Peripheral Vein, Percutaneous Approach (ICD-10-PCS; principal; 2025-01-20)
PROC: 3E01305 Introduction of Other Antineoplastic into Subcutaneous Tissue, Percutaneous Approach (ICD-10-PCS; 2025-01-20)
DX: Z51.11 Encounter for antineoplastic chemotherapy (principal); C50.212 Malignant neoplasm of upper-inner quadrant of left female breast; Z17.0 Estrogen receptor positive status [ER+]
CPT/HCPCS: 36415; 80053; 82306; 82378; 82670; 83001; 83002; 83735; 84703; 85025; 86300; 96365; 96401; J3489; J9202